=== PATIENT | female | born 1965 | race African-American/Black ===

== ENCOUNTER 2019-09-11 15:42 | Inpatient (IN) | payer BC ==
[2019-09-11] MEDS ORDERED: Sodium Chloride 0.9% 1,000 ML IV ONE ×2 (15:57→17:53)
[2019-09-11] MEDS ORDERED: Ondansetron 4 MG/2 ML SDV IVPUSH ONE (15:57)
--- NOTE | 2019-09-11 16:03 | EDM.PDOC ---
ED HPI GENERAL MEDICAL PROBLEM - General Chief Complaint: General Stated Complaint: HEADACHES, DEHYDRATION Time Seen by Provider: 09/11/19 15:46 Source of Information: Reports: Patient History Limitations: Reports: No Limitations - History of Present Illness INITIAL COMMENTS - FREE TEXT/NARRATIVE: HISTORY AND PHYSICAL: History of present illness: Patient is a 54-year-old female who presents to the ED today for concern of feeling dehydrated, weak, and tiredness. Patient states she has lost 7 pounds in the last week and has been sleeping a lot more. Patient does complain of generalized body aches and feels like her cramping off and on. Patient states she has a history of type 2 diabetes on oral medication and denies any other health history. Patient denies fever, chills, chest pain, shortness of breath, or cough. Denies headache, neck stiff ness, change in vision, syncope, or near syncope. Denies nausea, vomiting, abdominal pain, diarrhea, constipation, or dysuria. Has not noted any blood in urine or stool. Review of systems: As per history of present illness and below otherwise all systems reviewed and negative. Past medical history: As per history of present illness and as reviewed below otherwise noncontributory. Surgical history: As per history of present illness and as reviewed below otherwise noncontributory. Social history: See social history for further information Family history: As per history of present illness and as reviewed below otherwise noncontributory. Physical exam: General: Patient is alert, oriented, and in no acute distress. Patient laying comfortably on exam table but tired appearing. HEENT: Atraumatic, normocephalic, pupils equal and reactive bilaterally, negative for conjunctival pallor or scleral icterus, mucous membranes severely dry and tacky, TMs normal bilaterally, throat clear, neck supple, nontender, trachea midline. No drooling or trismus noted. No meningeal signs. No hot potato voice noted. Lungs: Clear to auscultation, breath sounds equal bilaterally, chest nontender. Heart: Tachycardic.S1S2, regular rate and rhythm without overt murmur Abdomen: Thin. Soft, nondistended, nontender. Negative for masses or hepatosplenomegaly. Negative for costovertebral tenderness. Pelvis: Stable nontender. Genitourinary: Deferred. Rectal: Deferred. Skin: Intact, warm, dry. No lesions or rashes noted. Extremities: Atraumatic, negative for cords or calf pain. Neurovascular unremarkable. Neuro: Awake, alert, oriented. Cranial nerves II through XII unremarkable. Cerebellum unremarkable. Motor and sensory unremarkable throughout. Exam nonfocal. Notes: Dr. Jolly verbally involved in patient care. Dr. Grayson consulted on patient and requests not starting insulin drip at this time and giving insulin 15U SQ of regular insulin. She also requests giving 2 A of bicarbonate at this time will admit to inpatient ICU. Voices understanding and is agreeable to plan of care. Denies any further questions or concerns at this time. Diagnostics: CBC, CMP, UA, EKG, chest x-ray, influenza, troponin, ABG, blood ketone, CPK Therapeutics: Saline, zofran, Insulin, 2 amp bicarb Impression: Metabolic Acidosis Plan: 1. Admit to inpatient ICU to Dr. Grayson. Definitive disposition and diagnosis as appropriate pending reevaluation and review of above. bodyaches Pain Score (Numeric/FACES): 8 - Related Data Allergies Allergy/AdvReac Type Severity Reaction Status Date / Time No Known Allergies Allergy Verified 09/11/19 15:50 Home Meds: Home Meds Empagliflozin/Linagliptin [Glyxambi 25 mg-5 mg Tablet] 1 each PO DAILY 12/18/16 [History] levETIRAcetam [Keppra] 500 mg PO DAILY 12/18/16 [History] sitaGLIPtin Phos/Metformin HCl [Janumet 50-1,000 MG] 1 each PO DAILY 12/18/16 [ History] Past Medical History - Past Health History Medical/Surgical History: Denies Medical/Surgical History Cardiovascular History: Reports: None Other RN ACUTE DIALYSIS History: perimenopausal Neurological History: Reports: Seizure Endocrine/Metabolic History: Reports: Diabetes, Type II Oncologic (Cancer) History: Reports: None - Past Surgical History Other HEENT Surgeries/Procedures: ear surgery 20 years ago. nasal surgery 5 years ago Social & Family History - Family History Family Medical History: Noncontributory - Tobacco Use Smoking Status *Q: Never Smoker - Caffeine Use Caffeine Use: Reports: Coffee Caffeine Use Comment: 3 cups a day - Recreational Drug Use Recreational Drug Use: No ED ROS GENERAL - Review of Systems Review Of Systems: Comprehensive ROS is negative, except as noted in HPI. ED EXAM, GENERAL - Physical Exam Exam: See Below (See dictation) Course - Vital Signs Last Recorded V/S: Last Vital Signs Temp 97.4 F 09/11/19 15:48 Pulse 108 H 09/11/19 17:50 Resp 20 09/11/19 17:50 BP 120/60 09/11/19 17:50 Pulse Ox 100 09/11/19 17:50 - Orders/Labs/Meds Orders: Active Orders 24 hr Category Date Time Status Admission Status [Patient Status] [ADT] Stat ADT 09/11/19 18:09 Ordered Blood Glucose Check, Bedside [RC] ONETIME Care 09/11/19 15:58 Active EKG Documentation Completion [RC] STAT Care 09/11/19 15:57 Active UA RFX MADELINE AND CULT IF INDIC [URIN] Stat Lab 09/11/19 15:57 Ordered Insulin Regular, Human [NovoLIN R] Med 09/11/19 18:15 Ordered 15 unit SUBCUT ASDIRECTED Sodium Chloride 0.9% [Normal Saline] 1,000 ml Med 09/11/19 17:53 Active IV .Bolus Medication Orders Sodium Chloride (Normal Saline) 1,000 mls @ 999 mls/hr IV .Bolus ONE Stop: 09/11/19 18:53 Last Admin: 09/11/19 17:56 Dose: 999 mls/hr Insulin Human Regular (Novolin R) 15 unit SUBCUT ASDIRECTED [facility]; Protocol Labs: Laboratory Tests 09/11/19 09/11/19 09/11/19 Range/Units 16:21 16:35 16:38 WBC 9.46 (4.0-11.0) K/uL RBC 5.21 (4.30-5.90) M/uL Hgb 15.4 (12.0-16.0) g/dL Hct 46.9 H (36.0-46.0) % MCV 90.0 (80.0-98.0) fL MCH 29.6 (27.0-32.0) pg MCHC 32.8 (31.0-37.0) g/dL RDW Std Deviation 43.8 (28.0-62.0) fl RDW Coeff of Mary 13 (11.0-15.0) % Plt Count 217 (150-400) K/uL MPV 9.10 (7.40-12.00) fL Neut % (Auto) 85.0 H (48.0-80.0) % Lymph % (Auto) 9.5 L (16.0-40.0) % Dewey % (Auto) 5.4 (0.0-15.0) % Eos % (Auto) 0.0 (0.0-7.0) % Baso % (Auto) 0.1 (0.0-1.5) % Neut # (Auto) 8.0 H (1.4-5.7) K/uL Lymph # (Auto) 0.9 (0.6-2.4) K/uL Dewey # (Auto) 0.5 (0.0-0.8) K/uL Eos # (Auto) 0.0 (0.0-0.7) K/uL Baso # (Auto) 0.0 (0.0-0.1) K/uL Nucleated RBC % 0.0 /100WBC Nucleated RBCs # 0 K/uL INR ABG pH 7.054 L* (7.35-7.45) ABG pCO2 16 L (35-45) mmHG ABG pO2 103 H (75-100) mmHG ABG HCO3 5 L (22-26) mEq/L ABG Total CO2 4.3 ABG Base Excess -24.0 L (-2.0-2.0) Sodium 133 L (136-145) mmol/L Potassium 4.8 (3.5-5.1) mmol/L Chloride 100 (98-107) mmol/L Carbon Dioxide 7.3 L (21.0-32.0) mmol/L BUN 21 H (7.0-18.0) mg/dL Creatinine 1.1 H (0.6-1.0) mg/dL Est Cr Clr Drug Dosing 37.26 mL/min Estimated GFR (MDRD) > 60.0 ml/min Glucose 280 H (74-106) mg/dL Calcium 8.6 (8.5-10.1) mg/dL Total Bilirubin 0.6 (0.2-1.0) mg/dL AST 21 (15-37) IU/L ALT 25 (14-63) IU/L Alkaline Phosphatase 74 (46-116) U/L Creatine Kinase (26-308) U/L Troponin I < 0.050 (0.000-0.056) ng/mL Total Protein 7.6 (6.4-8.2) g/dL Albumin 3.9 (3.4-5.0) g/dL Globulin 3.7 (2.6-4.0) g/dL Albumin/Globulin Ratio 1.1 (0.9-1.6) Lipase 314 (73-393) U/L Ketones (NEG) 09/11/19 09/11/19 09/11/19 Range/Units 16:38 16:38 16:38 WBC (4.0-11.0) K/uL RBC (4.30-5.90) M/uL Hgb (12.0-16.0) g/dL Hct (36.0-46.0) % MCV (80.0-98.0) fL MCH (27.0-32.0) pg MCHC (31.0-37.0) g/dL RDW Std Deviation (28.0-62.0) fl RDW Coeff of Mary (11.0-15.0) % Plt Count (150-400) K/uL MPV (7.40-12.00) fL Neut % (Auto) (48.0-80.0) % Lymph % (Auto) (16.0-40.0) % Dewey % (Auto) (0.0-15.0) % Eos % (Auto) (0.0-7.0) % Baso % (Auto) (0.0-1.5) % Neut # (Auto) (1.4-5.7) K/uL Lymph # (Auto) (0.6-2.4) K/uL Dewey # (Auto) (0.0-0.8) K/uL Eos # (Auto) (0.0-0.7) K/uL Baso # (Auto) (0.0-0.1) K/uL Nucleated RBC % /100WBC Nucleated RBCs # K/uL INR 0.90 ABG pH (7.35-7.45) ABG pCO2 (35-45) mmHG ABG pO2 (75-100) mmHG ABG HCO3 (22-26) mEq/L ABG Total CO2 ABG Base Excess (-2.0-2.0) Sodium (136-145) mmol/L Potassium (3.5-5.1) mmol/L Chloride (98-107) mmol/L Carbon Dioxide (21.0-32.0) mmol/L BUN (7.0-18.0) mg/dL Creatinine (0.6-1.0) mg/dL Est Cr Clr Drug Dosing mL/min Estimated GFR (MDRD) ml/min Glucose (74-106) mg/dL Calcium (8.5-10.1) mg/dL Total Bilirubin (0.2-1.0) mg/dL AST (15-37) IU/L ALT (14-63) IU/L Alkaline Phosphatase (46-116) U/L Creatine Kinase 47 (26-308) U/L Troponin I (0.000-0.056) ng/mL Total Protein (6.4-8.2) g/dL Albumin (3.4-5.0) g/dL Globulin (2.6-4.0) g/dL Albumin/Globulin Ratio (0.9-1.6) Lipase (73-393) U/L Ketones MODERATE H (NEG) Meds: Medications Generic Name Dose Route Start Last Admin Trade Name Freq PRN Reason Stop Dose Admin Sodium Chloride 1,000 mls @ 999 mls/hr 09/11/19 17:53 09/11/19 17:56 Normal Saline IV 09/11/19 18:53 999 mls/hr .Bolus ONE Administration Insulin Human Regular 15 unit 09/11/19 18:15 Novolin R SUBCUT ASDIRECTED PAR[facility] Protocol Discontinued Medications Generic Name Dose Route Start Last Admin Trade Name Freq PRN Reason Stop Dose Admin Sodium Chloride 1,000 mls @ 999 mls/hr 09/11/19 15:57 09/11/19 16:18 Normal Saline IV 09/11/19 16:57 999 mls/hr BOLUS ONE Administration Ondansetron HCl 4 mg 09/11/19 15:57 09/11/19 17:32 Zofran IVPUSH 09/11/19 15:58 Not Given ONETIME ONE Sodium Bicarbonate 50 meq 09/11/19 18:04 Sodium Bicarbonate 8.4% IVPUSH 09/11/19 18:05 ONETIME ONE Sodium Bicarbonate 50 meq 09/11/19 18:05 Sodium Bicarbonate 8.4% IVPUSH 09/11/19 18:06 ONETIME ONE Departure - Departure Time of Disposition: 18:14 Disposition: Admitted As Inpatient 66 Clinical Impression: Metabolic acidosis - Discharge Information Referrals: Garrett Mckoy MD [Primary Care Provider] - Forms: ED Department Discharge - My Orders Last 24 Hours: My Active Orders 09/11/19 15:57 EKG Documentation Completion [RC] STAT UA RFX MADELINE AND CULT IF INDIC [URIN] Stat 09/11/19 15:58 Blood Glucose Check, Bedside [RC] ONETIME 09/11/19 17:53 Sodium Chloride 0.9% [Normal Saline] 1,000 ml IV .Bolus 09/11/19 18:09 Admission Status [Patient Status] [ADT] Stat 09/11/19 18:15 Insulin Regular, Human [NovoLIN R] 15 unit SUBCUT ASDIRECTED - Assessment/Plan Last 24 Hours: My Active Orders 09/11/19 15:57 EKG Documentation Completion [RC] STAT UA RFX MADELINE AND CULT IF INDIC [URIN] Stat 09/11/19 15:58 Blood Glucose Check, Bedside [RC] ONETIME 09/11/19 17:53 Sodium Chloride 0.9% [Normal Saline] 1,000 ml IV .Bolus 09/11/19 18:09 Admission Status [Patient Status] [ADT] Stat 09/11/19 18:15 Insulin Regular, Human [NovoLIN R] 15 unit SUBCUT ASDIRECTED
[2019-09-11 17:23] LABS: BLOOD UREA NITROGEN,BUN 21 mg/dL (7.0-18.0); CARBON DIOXIDE,CO2 7.3 mmol/L (21.0-32.0); CHLORIDE,CL 100 mmol/L (98-107); GLUCOSE RANDOM 280 mg/dL (74-106); LIPASE 314 U/L (73-393); POTASSIUM,K 4.8 mmol/L (3.5-5.1); SODIUM,NA 133 mmol/L (136-145)
--- NOTE | 2019-09-11 17:37 | CR ---
HISTORY: Weakness COMPARISON: None available FINDINGS: A portable erect AP view of the chest was obtained at STUDY TIME hours. The lungs are clear. No focal or diffuse infiltrates are present. The heart is top-normal in size. The mediastinum is normal in appearance. The osseous structures are normal in appearance for the patient`s age. IMPRESSION: Normal portable chest single view. Dictated by Cody Prado MD @ Sep 11 2019 5:35PM Signed by Dr. Cody Prado @ Sep 11 2019 5:35PM
[2019-09-11] MEDS ORDERED: Sodium Bicarbonate 8.4% 50 MEQ/50 ML Syringe IVPUSH ONE ×2 (18:04→18:05)
[2019-09-11] MEDS ORDERED: Insulin Regular, Human 100 Units/ML 10 ML Vial SUBCUT SCH (18:15)
--- NOTE | 2019-09-11 19:25 | PCM.HP.2 ---
<Tonio Lopez - Last Filed: 09/11/19 19:54> H&P History of Present Illness - General Date of Service: 09/11/19 Admit Problem/Dx: Admission Diagnosis/Problem Admission Diagnosis/Problem Metabolic acidosis - History of Present Illness Initial Comments - Free Text/Narative: 54 y/o female with history of type 2 diabetes who presented to the ER complaining nausea, abdominal pain, muscle cramps. Poor appetite for the past 1 week. State she has lost about 7-10 lbs in the past couple of weeks. states she has been taking her medications as indicated. Denies any recent illness. No cough, chest pain, dyspnea. Some abdominal cramping. No dysuria, diarrhea, blood in stool. In the ER, she was found to be hyperglycemic in mid 200's. ABG showed acidosis pH 7.0 and low bicarb. In addition, ketones in blood. bodyaches Pain Score (Numeric/FACES): 8 - Related Data Allergies/Adverse Reactions: Allergies Allergy/AdvReac Type Severity Reaction Status Date / Time No Known Allergies Allergy Verified 09/12/19 01:20 Home Medications: Home Meds levETIRAcetam [Keppra] 500 mg PO DAILY 12/18/16 [History] sitaGLIPtin Phos/Metformin HCl [Janumet 50-1,000 MG] 1 each PO DAILY 12/18/16 [ History] Past Medical History - Past Health History Medical/Surgical History: Denies Medical/Surgical History Cardiovascular History: Reports: None Other OB/BYN History: perimenopausal Neurological History: Reports: Seizure Endocrine/Metabolic History: Reports: Diabetes, Type II Oncologic (Cancer) History: Reports: None - Past Surgical History Other HEENT Surgeries/Procedures: ear surgery 20 years ago. nasal surgery 5 years ago Social & Family History - Family History Family Medical History: Noncontributory - Tobacco Use Smoking Status *Q: Never Smoker - Caffeine Use Caffeine Use: Reports: Coffee Caffeine Use Comment: 3 cups a day - Recreational Drug Use Recreational Drug Use: No H&P Review of Systems - Review of Systems: Review Of Systems: Comprehensive ROS is negative, except as noted in HPI. Exam - Exam Exam: See Below - Vital Signs Vital Signs: Last Vital Signs Temp 36.3 C 09/11/19 15:48 Pulse 105 H 09/11/19 18:50 Resp 20 09/11/19 18:50 BP 112/69 09/11/19 18:50 Pulse Ox 100 09/11/19 18:50 Weight: 40.37 kg - Exam General: Alert, Oriented, Cooperative HEENT: Other (dry oral mucosa) Lungs: Clear to Auscultation, Normal Respiratory Effort. No: Crackles, Wheezing Cardiovascular: Regular Rhythm, Tachycardia GI/Abdominal Exam: Soft, Tender Extremities: No Pedal Edema Skin: Dry - Patient Data Lab Results Last 24 hrs: Laboratory Results - last 24 hr 09/11/19 09/11/19 09/11/19 Range/Units 16:21 16:35 16:35 WBC (4.0-11.0) K/uL RBC (4.30-5.90) M/uL Hgb (12.0-16.0) g/dL Hct (36.0-46.0) % MCV (80.0-98.0) fL MCH (27.0-32.0) pg MCHC (31.0-37.0) g/dL RDW Std Deviation (28.0-62.0) fl RDW Coeff of Mary (11.0-15.0) % Plt Count (150-400) K/uL MPV (7.40-12.00) fL Neut % (Auto) (48.0-80.0) % Lymph % (Auto) (16.0-40.0) % [place] % (Auto) (0.0-15.0) % Eos % (Auto) (0.0-7.0) % Baso % (Auto) (0.0-1.5) % Neut # (Auto) (1.4-5.7) K/uL Lymph # (Auto) (0.6-2.4) K/uL [place] # (Auto) (0.0-0.8) K/uL Eos # (Auto) (0.0-0.7) K/uL Baso # (Auto) (0.0-0.1) K/uL Nucleated RBC % /100WBC Nucleated RBCs # K/uL INR ABG pH 7.054 L* (7.35-7.45) ABG pCO2 16 L (35-45) mmHG ABG pO2 103 H (75-100) mmHG ABG HCO3 5 L (22-26) mEq/L ABG Total CO2 4.3 ABG Base Excess -24.0 L (-2.0-2.0) Sodium 133 L (136-145) mmol/L Potassium 4.8 (3.5-5.1) mmol/L Chloride 100 (98-107) mmol/L Carbon Dioxide 7.3 L (21.0-32.0) mmol/L BUN 21 H (7.0-18.0) mg/dL Creatinine 1.1 H (0.6-1.0) mg/dL Est Cr Clr Drug Dosing 37.26 mL/min Estimated GFR (MDRD) > 60.0 ml/min Glucose 280 H (74-106) mg/dL POC Glucose (60-110) mg/dL Calcium 8.6 (8.5-10.1) mg/dL Phosphorus 3.7 (2.6-4.7) mg/dL Magnesium 2.4 (1.8-2.4) mg/dL Total Bilirubin 0.6 (0.2-1.0) mg/dL AST 21 (15-37) IU/L ALT 25 (14-63) IU/L Alkaline Phosphatase 74 (46-116) U/L Creatine Kinase (26-308) U/L Troponin I < 0.050 (0.000-0.056) ng/mL Total Protein 7.6 (6.4-8.2) g/dL Albumin 3.9 (3.4-5.0) g/dL Globulin 3.7 (2.6-4.0) g/dL Albumin/Globulin Ratio 1.1 (0.9-1.6) Lipase 314 (73-393) U/L Ketones (NEG) 09/11/19 09/11/19 09/11/19 Range/Units 16:38 16:38 16:38 WBC 9.46 (4.0-11.0) K/uL RBC 5.21 (4.30-5.90) M/uL Hgb 15.4 (12.0-16.0) g/dL Hct 46.9 H (36.0-46.0) % MCV 90.0 (80.0-98.0) fL MCH 29.6 (27.0-32.0) pg MCHC 32.8 (31.0-37.0) g/dL RDW Std Deviation 43.8 (28.0-62.0) fl RDW Coeff of Mary 13 (11.0-15.0) % Plt Count 217 (150-400) K/uL MPV 9.10 (7.40-12.00) fL Neut % (Auto) 85.0 H (48.0-80.0) % Lymph % (Auto) 9.5 L (16.0-40.0) % [place] % (Auto) 5.4 (0.0-15.0) % Eos % (Auto) 0.0 (0.0-7.0) % Baso % (Auto) 0.1 (0.0-1.5) % Neut # (Auto) 8.0 H (1.4-5.7) K/uL Lymph # (Auto) 0.9 (0.6-2.4) K/uL [place] # (Auto) 0.5 (0.0-0.8) K/uL Eos # (Auto) 0.0 (0.0-0.7) K/uL Baso # (Auto) 0.0 (0.0-0.1) K/uL Nucleated RBC % 0.0 /100WBC Nucleated RBCs # 0 K/uL INR 0.90 ABG pH (7.35-7.45) ABG pCO2 (35-45) mmHG ABG pO2 (75-100) mmHG ABG HCO3 (22-26) mEq/L ABG Total CO2 ABG Base Excess (-2.0-2.0) Sodium (136-145) mmol/L Potassium (3.5-5.1) mmol/L Chloride (98-107) mmol/L Carbon Dioxide (21.0-32.0) mmol/L BUN (7.0-18.0) mg/dL Creatinine (0.6-1.0) mg/dL Est Cr Clr Drug Dosing mL/min Estimated GFR (MDRD) ml/min Glucose (74-106) mg/dL POC Glucose (60-110) mg/dL Calcium (8.5-10.1) mg/dL Phosphorus (2.6-4.7) mg/dL Magnesium (1.8-2.4) mg/dL Total Bilirubin (0.2-1.0) mg/dL AST (15-37) IU/L ALT (14-63) IU/L Alkaline Phosphatase (46-116) U/L Creatine Kinase (26-308) U/L Troponin I (0.000-0.056) ng/mL Total Protein (6.4-8.2) g/dL Albumin (3.4-5.0) g/dL Globulin (2.6-4.0) g/dL Albumin/Globulin Ratio (0.9-1.6) Lipase (73-393) U/L Ketones MODERATE H (NEG) 09/11/19 09/11/19 09/11/19 Range/Units 16:38 18:13 19:15 WBC (4.0-11.0) K/uL RBC (4.30-5.90) M/uL Hgb (12.0-16.0) g/dL Hct (36.0-46.0) % MCV (80.0-98.0) fL MCH (27.0-32.0) pg MCHC (31.0-37.0) g/dL RDW Std Deviation (28.0-62.0) fl RDW Coeff of Mary (11.0-15.0) % Plt Count (150-400) K/uL MPV (7.40-12.00) fL Neut % (Auto) (48.0-80.0) % Lymph % (Auto) (16.0-40.0) % [place] % (Auto) (0.0-15.0) % Eos % (Auto) (0.0-7.0) % Baso % (Auto) (0.0-1.5) % Neut # (Auto) (1.4-5.7) K/uL Lymph # (Auto) (0.6-2.4) K/uL [place] # (Auto) (0.0-0.8) K/uL Eos # (Auto) (0.0-0.7) K/uL Baso # (Auto) (0.0-0.1) K/uL Nucleated RBC % /100WBC Nucleated RBCs # K/uL INR ABG pH (7.35-7.45) ABG pCO2 (35-45) mmHG ABG pO2 (75-100) mmHG ABG HCO3 (22-26) mEq/L ABG Total CO2 ABG Base Excess (-2.0-2.0) Sodium (136-145) mmol/L Potassium (3.5-5.1) mmol/L Chloride (98-107) mmol/L Carbon Dioxide (21.0-32.0) mmol/L BUN (7.0-18.0) mg/dL Creatinine (0.6-1.0) mg/dL Est Cr Clr Drug Dosing mL/min Estimated GFR (MDRD) ml/min Glucose (74-106) mg/dL POC Glucose 206 H 171 H (60-110) mg/dL Calcium (8.5-10.1) mg/dL Phosphorus (2.6-4.7) mg/dL Magnesium (1.8-2.4) mg/dL Total Bilirubin (0.2-1.0) mg/dL AST (15-37) IU/L ALT (14-63) IU/L Alkaline Phosphatase (46-116) U/L Creatine Kinase 47 (26-308) U/L Troponin I (0.000-0.056) ng/mL Total Protein (6.4-8.2) g/dL Albumin (3.4-5.0) g/dL Globulin (2.6-4.0) g/dL Albumin/Globulin Ratio (0.9-1.6) Lipase (73-393) U/L Ketones (NEG) Result Diagrams: 09/11/19 16:38 09/11/19 16:35 Renato Results Last 24 hrs: Microbiology 09/11/19 17:25 Influenza Type A Antigen Screen - Final Nasopharyngeal Swab NEGATIVE INFLUENZA A VIRUS AG REFERENCE RANGE: NEGATIVE Influenza Type B Antigen Screen - Final NEGATIVE INFLUENZA B VIRUS AG REFERENCE RANGE: NEGATIVE Problem List Initiated/Reviewed/Updated: Yes Orders Last 24hrs: Active Orders 24 hr Category Date Time Status Admission Status [Patient Status] [ADT] Stat ADT 09/11/19 18:09 Active Blood Glucose Check, Bedside [RC] ONETIME Care 09/11/19 15:58 Active Cardiac Monitoring [RC] CONTINUOUS Care 09/11/19 18:45 Active EKG Documentation Completion [RC] STAT Care 09/11/19 15:57 Active Intake and Output [RC] QSHIFT Care 09/11/19 18:45 Active Oxygen Therapy [RC] PRN Care 09/11/19 18:45 Active Up With Assistance [RC] ASDIRECTED Care 09/11/19 18:44 Active VTE/DVT Education [RC] PER UNIT ROUTINE Care 09/11/19 18:45 Active Vital Signs [RC] Q4H Care 09/11/19 18:45 Active Nothing per Oral Now Diet [DIET] Diet 09/11/19 Breakfast Active ALBUMIN [CHEM] Routine Lab 09/12/19 04:00 Ordered BASIC METABOLIC PANEL,BMP [CHEM] Q4H Lab 09/11/19 20:00 Ordered BASIC METABOLIC PANEL,BMP [CHEM] Q4H Lab 09/12/19 00:00 Ordered BASIC METABOLIC PANEL,BMP [CHEM] Q4H Lab 09/12/19 04:00 Ordered BASIC METABOLIC PANEL,BMP [CHEM] Q4H Lab 09/12/19 08:00 Ordered BASIC METABOLIC PANEL,BMP [CHEM] Q4H Lab 09/12/19 12:00 Ordered LACTIC ACID,WHOLE BLOOD [BG] Routine Lab 09/11/19 19:18 Ordered MAGNESIUM [CHEM] Q4H Lab 09/11/19 20:00 Ordered MAGNESIUM [CHEM] Q4 Lab 09/12/19 00:00 Ordered MAGNESIUM [CHEM] Q4 Lab 09/12/19 04:00 Ordered MAGNESIUM [CHEM] Q4 Lab 09/12/19 08:00 Ordered MAGNESIUM [CHEM] Q4 Lab 09/12/19 12:00 Ordered PHOSPHORUS [CHEM] Q4 Lab 09/11/19 20:00 Ordered PHOSPHORUS [CHEM] Q4 Lab 09/12/19 00:00 Ordered PHOSPHORUS [CHEM] Q4 Lab 09/12/19 04:00 Ordered PHOSPHORUS [CHEM] Q4 Lab 09/12/19 08:00 Ordered PHOSPHORUS [CHEM] Q4 Lab 09/12/19 12:00 Ordered TRIGLYCERIDES [CHEM] Routine Lab 09/11/19 19:16 Ordered UA RFX RENATO AND CULT IF INDIC [URIN] Stat Lab 09/11/19 15:57 Ordered Enoxaparin [Lovenox] Med 09/11/19 18:45 Active 40 mg SUBCUT Q24H Insulin Regular, Human [NovoLIN R] 100 unit Med 09/11/19 19:00 Active Sodium Chloride 0.9% [Normal Saline] 99 ml IV TITRATE Pantoprazole [ProTONIX IV] 40 mg Med 09/11/19 19:30 Active Sodium Chloride 0.9% [Normal Saline] 10 ml IV Q24H Sodium Chloride 0.9% [Normal Saline] 1,000 ml Med 09/11/19 18:45 Active IV BOLUS Resuscitation Status Routine Resus Stat 09/11/19 18:44 Ordered Medication Orders Enoxaparin Sodium (Lovenox) 40 mg SUBCUT Q24H PARAM Sodium Chloride (Normal Saline) 1,000 mls @ 999 mls/hr IV BOLUS PARAM Stop: 09/12/19 19:46 Insulin Human Regular 100 unit (/ Sodium Chloride) 100 mls @ 4.03 mls/hr IV TITRATE PARAM; Protocol Pantoprazole Sodium 40 mg/ (Sodium Chloride) 10 mls @ 300 mls/hr IV Q24H PARAM Assessment/Plan Comment:: A: 1. Diabetic ketoacidosis 2. Acute kidney injury 3. Hyponatremia P: 1. Will start insulin drip and titrate as necessary. Will bolus with 2 L NS and start D5NS at 200 ml/hr while insulin drip is running since patient has BG low 200's already but still with ketoacidosis. Continue drip until anion gap closes to prevent rebound DKA. Check BMP, electrolytes q4H for now and replace as needed. Will switch to SQ insulin once patient can tolerate PO and is not nauseous. Dispo: 1-2 days. <Gale Grayson - Last Filed: 09/13/19 09:34> H&P History of Present Illness - General Admit Problem/Dx: Admission Diagnosis/Problem Admission Diagnosis/Problem Metabolic acidosis Exam - Vital Signs Vital Signs: Last Vital Signs Temp 36.7 C 09/13/19 08:00 Pulse 87 09/12/19 08:00 Resp 18 09/13/19 09:00 BP 126/69 09/13/19 09:00 Pulse Ox 98 09/13/19 09:00 - Patient Data Lab Results Last 24 hrs: Laboratory Results - last 24 hr 09/12/19 09/12/19 09/12/19 Range/Units 07:32 08:39 09:38 ABG pH (7.35-7.45) ABG pCO2 (35-45) mmHG ABG pO2 (75-100) mmHG ABG HCO3 (22-26) mEq/L ABG Total CO2 ABG Base Excess (-2.0-2.0) Sodium (136-145) mmol/L Potassium (3.5-5.1) mmol/L Chloride (98-107) mmol/L Carbon Dioxide (21.0-32.0) mmol/L BUN (7.0-18.0) mg/dL Creatinine (0.6-1.0) mg/dL Est Cr Clr Drug Dosing mL/min Estimated GFR (MDRD) ml/min Glucose (74-106) mg/dL POC Glucose 149 H 147 H 164 H (60-110) mg/dL Calcium (8.5-10.1) mg/dL Phosphorus (2.6-4.7) mg/dL Magnesium (1.8-2.4) mg/dL Albumin (3.4-5.0) g/dL TSH 3rd Generation (0.36-3.74) uIU/mL 09/12/19 09/12/19 09/12/19 Range/Units 10:25 11:27 11:50 ABG pH 7.364 (7.35-7.45) ABG pCO2 32 L (35-45) mmHG ABG pO2 76 (75-100) mmHG ABG HCO3 18 L (22-26) mEq/L ABG Total CO2 16.9 ABG Base Excess -6.3 L (-2.0-2.0) Sodium (136-145) mmol/L Potassium (3.5-5.1) mmol/L Chloride (98-107) mmol/L Carbon Dioxide (21.0-32.0) mmol/L BUN (7.0-18.0) mg/dL Creatinine (0.6-1.0) mg/dL Est Cr Clr Drug Dosing mL/min Estimated GFR (MDRD) ml/min Glucose (74-106) mg/dL POC Glucose 134 H 125 H (60-110) mg/dL Calcium (8.5-10.1) mg/dL Phosphorus (2.6-4.7) mg/dL Magnesium (1.8-2.4) mg/dL Albumin (3.4-5.0) g/dL TSH 3rd Generation (0.36-3.74) uIU/mL 09/12/19 09/12/19 09/12/19 Range/Units 12:42 13:15 13:27 ABG pH (7.35-7.45) ABG pCO2 (35-45) mmHG ABG pO2 (75-100) mmHG ABG HCO3 (22-26) mEq/L ABG Total CO2 ABG Base Excess (-2.0-2.0) Sodium 141 (136-145) mmol/L Potassium 3.2 L (3.5-5.1) mmol/L Chloride 112 H (98-107) mmol/L Carbon Dioxide 18.9 L (21.0-32.0) mmol/L BUN 5 L (7.0-18.0) mg/dL Creatinine 0.6 (0.6-1.0) mg/dL Est Cr Clr Drug Dosing 68.31 mL/min Estimated GFR (MDRD) > 60.0 ml/min Glucose 137 H (74-106) mg/dL POC Glucose 130 H 126 H (60-110) mg/dL Calcium 6.3 L (8.5-10.1) mg/dL Phosphorus 1.2 L (2.6-4.7) mg/dL Magnesium 1.8 (1.8-2.4) mg/dL Albumin 2.6 L (3.4-5.0) g/dL TSH 3rd Generation (0.36-3.74) uIU/mL 09/12/19 09/12/19 09/12/19 Range/Units 14:24 15:35 16:14 ABG pH (7.35-7.45) ABG pCO2 (35-45) mmHG ABG pO2 (75-100) mmHG ABG HCO3 (22-26) mEq/L ABG Total CO2 ABG Base Excess (-2.0-2.0) Sodium (136-145) mmol/L Potassium (3.5-5.1) mmol/L Chloride (98-107) mmol/L Carbon Dioxide (21.0-32.0) mmol/L BUN (7.0-18.0) mg/dL Creatinine (0.6-1.0) mg/dL Est Cr Clr Drug Dosing mL/min Estimated GFR (MDRD) ml/min Glucose (74-106) mg/dL POC Glucose 123 H 143 H 140 H (60-110) mg/dL Calcium (8.5-10.1) mg/dL Phosphorus (2.6-4.7) mg/dL Magnesium (1.8-2.4) mg/dL Albumin (3.4-5.0) g/dL TSH 3rd Generation (0.36-3.74) uIU/mL 09/12/19 09/12/19 09/12/19 Range/Units 16:15 17:06 17:58 ABG pH (7.35-7.45) ABG pCO2 (35-45) mmHG ABG pO2 (75-100) mmHG ABG HCO3 (22-26) mEq/L ABG Total CO2 ABG Base Excess (-2.0-2.0) Sodium 141 (136-145) mmol/L Potassium 3.6 (3.5-5.1) mmol/L Chloride 110 H (98-107) mmol/L Carbon Dioxide 18.6 L (21.0-32.0) mmol/L BUN 5 L (7.0-18.0) mg/dL Creatinine 0.6 (0.6-1.0) mg/dL Est Cr Clr Drug Dosing 68.31 mL/min Estimated GFR (MDRD) > 60.0 ml/min Glucose 133 H (74-106) mg/dL POC Glucose 227 H 244 H (60-110) mg/dL Calcium 6.6 L (8.5-10.1) mg/dL Phosphorus 2.1 L (2.6-4.7) mg/dL Magnesium 2.1 (1.8-2.4) mg/dL Albumin 2.9 L (3.4-5.0) g/dL TSH 3rd Generation (0.36-3.74) uIU/mL 09/12/19 09/12/19 09/13/19 Range/Units 19:55 19:56 01:56 ABG pH (7.35-7.45) ABG pCO2 (35-45) mmHG ABG pO2 (75-100) mmHG ABG HCO3 (22-26) mEq/L ABG Total CO2 ABG Base Excess (-2.0-2.0) Sodium 138 (136-145) mmol/L Potassium 2.9 L (3.5-5.1) mmol/L Chloride 107 (98-107) mmol/L Carbon Dioxide 23.2 (21.0-32.0) mmol/L BUN 5 L (7.0-18.0) mg/dL Creatinine 0.6 (0.6-1.0) mg/dL Est Cr Clr Drug Dosing 68.31 mL/min Estimated GFR (MDRD) > 60.0 ml/min Glucose 155 H (74-106) mg/dL POC Glucose 145 H 57 L (60-110) mg/dL Calcium 6.9 L (8.5-10.1) mg/dL Phosphorus 1.5 L (2.6-4.7) mg/dL Magnesium 2.1 (1.8-2.4) mg/dL Albumin 2.5 L (3.4-5.0) g/dL TSH 3rd Generation (0.36-3.74) uIU/mL 09/13/19 09/13/19 09/13/19 Range/Units 02:34 03:18 05:00 ABG pH (7.35-7.45) ABG pCO2 (35-45) mmHG ABG pO2 (75-100) mmHG ABG HCO3 (22-26) mEq/L ABG Total CO2 ABG Base Excess (-2.0-2.0) Sodium 140 (136-145) mmol/L Potassium 3.8 (3.5-5.1) mmol/L Chloride 107 (98-107) mmol/L Carbon Dioxide 29.2 (21.0-32.0) mmol/L BUN 7 (7.0-18.0) mg/dL Creatinine 0.4 L (0.6-1.0) mg/dL Est Cr Clr Drug Dosing 130.97 mL/min Estimated GFR (MDRD) > 60.0 ml/min Glucose 175 H (74-106) mg/dL POC Glucose 92 143 H (60-110) mg/dL Calcium 7.5 L (8.5-10.1) mg/dL Phosphorus 2.0 L (2.6-4.7) mg/dL Magnesium 1.9 (1.8-2.4) mg/dL Albumin 2.5 L (3.4-5.0) g/dL TSH 3rd Generation (0.36-3.74) uIU/mL 09/13/19 09/13/19 Range/Units 05:00 08:03 ABG pH (7.35-7.45) ABG pCO2 (35-45) mmHG ABG pO2 (75-100) mmHG ABG HCO3 (22-26) mEq/L ABG Total CO2 ABG Base Excess (-2.0-2.0) Sodium (136-145) mmol/L Potassium (3.5-5.1) mmol/L Chloride (98-107) mmol/L Carbon Dioxide (21.0-32.0) mmol/L BUN (7.0-18.0) mg/dL Creatinine (0.6-1.0) mg/dL Est Cr Clr Drug Dosing mL/min Estimated GFR (MDRD) ml/min Glucose (74-106) mg/dL POC Glucose 141 H (60-110) mg/dL Calcium (8.5-10.1) mg/dL Phosphorus (2.6-4.7) mg/dL Magnesium (1.8-2.4) mg/dL Albumin (3.4-5.0) g/dL TSH 3rd Generation 5.64 H (0.36-3.74) uIU/mL Result Diagrams: 09/12/19 04:10 09/13/19 05:00 Renato Results Last 24 hrs: Microbiology 09/11/19 21:50 Urine Culture - Final Urine, Clean Catch Escherichia Coli Normal Urogenital Treasure Orders Last 24hrs: Active Orders 24 hr Category Date Time Status Consult to Combination Building Inspector [Consult to Diabetic Nurse Cons 09/12/19 09:16 Active Specialist] [CONS] Routine Citizen Of [place] Diabetic Association Diet [DIET] Diet 09/12/19 Lunch Active Calcium Gluconate 2 gm Med 09/12/19 15:30 Active Sodium Chloride 0.9% [Normal Saline] 100 ml IV ONETIME Insulin Aspart [NovoLOG] Med 09/12/19 20:00 Active See Protocol SUBCUT Q6H Insulin Detemir [Levemir] Med 09/12/19 21:00 Active 5 unit SUBCUT BEDTIME Ketorolac [Toradol] Med 09/12/19 13:15 Active 15 mg IVPUSH Q6H PRN Pantoprazole [ProTONIX IV] 40 mg Med 09/12/19 10:00 Active Sodium Chloride 0.9% [Normal Saline] 10 ml IV DAILY@0700 Phosphorus #1 [Neutra-Phos] Med 09/13/19 00:00 Active 250 mg PO QID Medication Orders Enoxaparin Sodium (Lovenox) 40 mg SUBCUT Q24H [facility] Last Admin: 09/12/19 18:12 Dose: 40 mg Admin: 09/11/19 20:20 Dose: 40 mg Dextrose/Sodium Chloride (Dextrose 5%-Normal Saline) 1,000 mls @ 200 mls/hr IV ASDIRECTED [facility] Last Admin: 09/12/19 11:38 Dose: 200 mls/hr Infusion: 09/12/19 11:20 Dose: 200 mls/hr Infusion: 09/12/19 06:47 Dose: 200 mls/hr Admin: 09/12/19 05:53 Dose: 100 mls/hr Infusion: 09/12/19 05:53 Dose: 100 mls/hr Infusion: 09/11/19 22:30 Dose: 100 mls/hr Admin: 09/11/19 21:42 Dose: 200 mls/hr Pantoprazole Sodium 40 mg/ (Sodium Chloride) 10 mls @ 300 mls/hr IV DAILY@0700 [facility] Last Admin: 09/13/19 06:46 Dose: 300 mls/hr Infusion: 09/12/19 10:12 Dose: 300 mls/hr Admin: 09/12/19 10:10 Dose: 300 mls/hr Calcium Gluconate 2 gm/ Sodium (Chloride) 120 mls @ 60 mls/hr IV ONETIME [facility] Last Admin: 09/12/19 15:44 Dose: 60 mls/hr Insulin Aspart (Novolog) 0 unit SUBCUT Q6H [facility]; Protocol Last Admin: 09/13/19 08:12 Dose: Not Given Admin: 09/13/19 02:01 Dose: Not Given Admin: 09/12/19 20:05 Dose: Not Given Insulin Detemir (Levemir) 5 unit SUBCUT BEDTIME [facility] Last Admin: 09/12/19 20:02 Dose: 5 unit Ketorolac Tromethamine (Toradol) 15 mg IVPUSH Q6H PRN PRN Reason: Pain Last Admin: 09/12/19 13:21 Dose: 15 mg Ondansetron HCl (Zofran) 4 mg IVPUSH Q4H PRN PRN Reason: Nausea/Vomiting Last Admin: 09/12/19 05:44 Dose: 4 mg Sodium Phosphate (Neutra-Phos) 250 mg PO QID PARAM Last Admin: 09/13/19 05:00 Dose: 250 mg Admin: 09/12/19 23:38 Dose: 250 mg Assessment/Plan Comment:: I performed a history and physical exam of the patient and discussed management with resident. I have reviewed the residents note and agree with documented findings and plan unless otherwise specified in my note.
[2019-09-11] MEDS ORDERED: Thiamine 100 MG in Sodium Chloride 0.9% 100 ML IV ONE (19:28)
[2019-09-11] MEDS ORDERED: Pantoprazole 40 MG in Sodium Chloride 0.9% 10 ML IV SCH (19:30)
[2019-09-11] MEDS: Enoxaparin 40 MG/0.4 ML Syringe SUBCUT SCH (20:20)
[2019-09-11] MEDS: Sodium Chloride 0.9% 1,000 ML IV SCH ×2 (20:24→22:24)
[2019-09-11 20:43] LABS: BLOOD UREA NITROGEN,BUN 15 mg/dL (7.0-18.0); CARBON DIOXIDE,CO2 12.3 mmol/L (21.0-32.0); CHLORIDE,CL 106 mmol/L (98-107); GLUCOSE RANDOM 142 mg/dL (74-106); SODIUM,NA 140 mmol/L (136-145)
--- NOTE | 2019-09-11 20:58 | PN ---
THC Physician - Brief Progress [id number]/14/2019 20:52[facility] Jamaal hernandez, [place] - SHAUN (NICO) - SHAUN Justino HOFFMANNharshad of Service 09/11/2019 20:52HPI/Events of Note EICU note:Reason for ICU admission - metabolic acidosis, ketosisPast history - DMBrief HPI - 54 year old woman with nausea, abdominal discomfort, loss of appetite and weight loss. Noted to have significant ketoacidosis on labs. Given IV fluids and insulin and being started on an insulin infusi on with dextrose infusion overnight in the iCU. No fever. Data reviewed - Notes in EMR, Lab results, radiology reportsBicarb improved to 12 alreadyCamera assessment completed - Stable vitals and comfort ableEICU suggestions- Is being kept NPO, on iv hydration and insulin infusion per protocol in ICUGluc ose checks every hourBMP every 4 hoursMay need to add potassium to the fluids as she remains on insul in iv overnight - will need to follow serial K, bicarb and anion gapReplete electrolytes as neededWil l need a work up for weight loss when stabilized - this could be starvation ketosis as well Monitor h emodynamics, fluid balance, glycemiaDiscussed with RN Prophylaxis - lovenoxPlease call EICU if needed . Has serial labs ordered in systemInterventions Xzqpt-Dfdj-Ruop disturbance - evaluation and managem entMinor-Communication with other healthcare providers and/or family
[2019-09-11] MEDS ORDERED: Ondansetron 4 MG/2 ML SDV IVPUSH PRN (21:00)
[2019-09-11] MEDS ORDERED: Potassium Phosphates 30 MMOLE in Sodium Chloride 0.9% 500 ML IV ONE (21:12)
--- NOTE | 2019-09-11 21:18 | PN ---
THC Physician - Brief Progress [id number]/14/2019 21:[address] JamaalLATIA - SHAUN (NICO) - Yehuda LOPEZ of Service 09/11/2019 21:17HPI/Events of Note K phos 30 mmol ordered based on most recent BMP - K is 4, phos s 1.4 (so will not add K to pippa bañuelos for now as she will be getting this as well)In addition, check ionized calciumInterventions Carlos or-Electrolyte abnormality - evaluation and management
[2019-09-11] MEDS: Dextrose 5%-0.9% NaCl 1,000 ML IV SCH (21:42)
[2019-09-12 01:17] LABS: BLOOD UREA NITROGEN,BUN 12 mg/dL (7.0-18.0); CARBON DIOXIDE,CO2 15.1 mmol/L (21.0-32.0); CHLORIDE,CL 111 mmol/L (98-107); GLUCOSE RANDOM 132 mg/dL (74-106); POTASSIUM,K 3.1 mmol/L (3.5-5.1); SODIUM,NA 141 mmol/L (136-145)
[2019-09-12] MEDS ORDERED: Calcium Gluconate 10% 1 GM/10 ML SDV IV ONE ×2 (01:29→05:05)
[2019-09-12] MEDS ORDERED: Potassium Chloride 20 MEQ Tab.ER PO ONE ×3 (01:38→23:55)
[2019-09-12] MEDS ORDERED: Magnesium Sulfate/Water 2 GM in Premix Bag 1 BAG IV ONE ×2 (01:38→15:00)
[2019-09-12] MEDS ORDERED: Phosphorus #1 250 MG Tab PO ONE ×3 (01:41→14:58)
--- NOTE | 2019-09-12 01:47 | PN ---
THC Physician - Brief Progress [id number]/15/2019 01:43[facility] Jamaal Hall, [place] - MIKEYN (NICO) - SHAUN Justino HOFFMANNharshad of Service 09/12/2019 01:43HPI/Events of Note RN and I discussed most recent BMP, bicarb is betterGetting her IV k phos, but phos has drop ped to 1.0 on this checkWill also give a dose of neutraphos x 1 as wellMag is 1.8, 2 gram iV magnesiu m orderedIonized calcium is low at 4.0, 1 gram IV calcium gluconate orderedK is 3.1, is getting her I V k phos anyway, will also give 40 meq oral potasisum nowClarfied with RN. No alcohol history reporte d. Awake, alert. No symptoms. On very low dose insulin drip. UA is back with no infection, with keton es. Possibly, this may all be related to poor oral intake/starvation. Monitor glucose and continue se rial monitoring.Interventions Major-Electrolyte abnormality - evaluation and managementMinor-Communic ation with other healthcare providers and/or familyElectronically Signed by: Efren Garvin) on 01:47
[2019-09-12 04:41] LABS: BLOOD UREA NITROGEN,BUN 10 mg/dL (7.0-18.0); CARBON DIOXIDE,CO2 14.4 mmol/L (21.0-32.0); CHLORIDE,CL 112 mmol/L (98-107); GLUCOSE RANDOM 128 mg/dL (74-106); SODIUM,NA 140 mmol/L (136-145)
--- NOTE | 2019-09-12 05:09 | PN ---
THC Physician - Brief Progress [id number]/15/2019 05:07[facility] Jamaal hernandez, LATIA - SHAUN (NICO) - Yehuda LOPEZ of Service 09/12/2019 05:07HPI/Events of Note Calcium gluconate 1 gram to be repeated as corrected calcium is still lowK, mag, phos have a ll improvedContinue monitoring Likely should be able to transition off the drip today, and caution wi th introducing diet in this patient with electrolyte defects/starvation ketosisInterventions Major-El ectrolyte abnormality - evaluation and managementElectronically Signed by: Efren Garvin) on 09/12 05:08
[2019-09-12] MEDS ORDERED: Famotidine 20 MG/2 ML SDV IVPUSH ONE (05:19)
--- NOTE | 2019-09-12 05:23 | PN ---
THC Physician - Brief Progress [id number]/15/2019 05:20[facility] Jamaal hernandez, LATIA - SHAUN (NICO) - Yehuda LOPEZ of Service 09/12/2019 05:20HPI/Events of Note RN notified me that patient thinks one of the pills she took earlier might be 'stuck' in her epigastric areaNo throat painNo resp distressNo abdominal painNo vomitingN change in vitalsNo abdomi nal tenderness per RNNot sure if she has an underlying GI issue that may need to be addressed if symp toms persistEasily able to cough and no distress on camPepcid x 1 ordered and spoke with RNInterventi ons Minor-Routine modifications to care plan (e.g. PRN medications for pain, fever)Electronically Sig ivy by: Efren Garvin) on 09/12/2019 05:22
[2019-09-12] MEDS: Dextrose 5%-0.9% NaCl 1,000 ML IV SCH ×2 (05:53→11:38)
[2019-09-12 08:47] LABS: BLOOD UREA NITROGEN,BUN 9 mg/dL (7.0-18.0); CARBON DIOXIDE,CO2 16.2 mmol/L (21.0-32.0); CHLORIDE,CL 111 mmol/L (98-107); GLUCOSE RANDOM 160 mg/dL (74-106); POTASSIUM,K 3.2 mmol/L (3.5-5.1); SODIUM,NA 142 mmol/L (136-145)
[2019-09-12 08:52] VITALS: PULSE 87
[2019-09-12] MEDS ORDERED: Potassium Chloride Riders 40 MEQ in Premix Bag 1 BAG IV ONE (09:20)
[2019-09-12] MEDS ORDERED: Potassium Phosphates 20 MMOLE in Sodium Chloride 0.9% 250 ML IV ONE (09:43)
[2019-09-12] MEDS ORDERED: Sodium Chloride 0.9% 1,000 ML IV SCH ×2 (10:00→11:45)
[2019-09-12] MEDS: Pantoprazole 40 MG in Sodium Chloride 0.9% 10 ML IV SCH (10:10)
--- NOTE | 2019-09-12 11:42 | PN ---
THC Physician - Brief Progress [id number]/15/2019 09:48[facility] [place], [place] - MWN (NICO) - MWN Justino HOFFMANNharshad of Service 09/12/2019 09:48HPI/Events of Note eICU Progress [id number] admitted for ketoacidosis. History obtained primarily from review of E MR.Camera exam: Laying in bed. Vitals monitor reviewed. Vitals: reviewedLabs: reviewedRadiology: revi ewedMeds: reviewedeICU Impression and Recommendations:Non-anion gap metabolic acidosis with ketonemia , of uncertain etiology- agree with continuation of insulin drip with dextrose infusion if acidemia i s thought to be primarily from ketonemia. Suggest transitioning to balanced rather than isotonic jennifer talloid in light of hyperchloremia (ie LR)- repeat ABG to assess acid-base status, depending on resul ts would recommend initiation of bicarbonate drip to make up for bicarbonate deficit. We are availabl e to assist with this if desired by primary service-consider serum osmolality for calculation of osmo kaylin gap- repeat serum ketones for some assessment of improving acid-base status, especially if patien t remains acidemic on ABGHypocalcemia, hypophosphatemia, hypokalemia- replenish electrolytesDVT and G I prophylaxis as appropriate.We are available to assist in further clarification, or implementation o f any of the above recommendations if desired by primary service.Thank you for allowing us to partici rojo in the care of this patient.The above note transcribed via dictation software. Please excuse any errors.Interventions Major-Electrolyte abnormality - evaluation and management
[2019-09-12] MEDS ORDERED: Sodium Phosphate 20 MMOLE in Sodium Chloride 0.9% 250 ML IV ONE (11:45)
--- NOTE | 2019-09-12 11:50 | PCM.PN ---
<Tonio Lopez - Last Filed: 09/12/19 11:44> - General Info Date of Service: 09/12/19 Subjective Update: doing better this morning. More alert. Would like to try drinking water. Anion gap has not closed. Most recent gap of 14. - Patient Data Vitals - Most Recent: Last Vital Signs Temp 36.5 C 09/12/19 08:00 Pulse 87 09/12/19 08:00 Resp 14 09/12/19 11:00 BP 88/55 L 09/12/19 11:00 Pulse Ox 98 09/12/19 11:00 Weight - Most Recent: 40.37 kg I&O - Last 24 Hours: Intake & Output 09/11/19 09/12/19 09/12/19 22:59 06:59 14:59 Intake Total 1101 2680 988 Output Total 2200 Balance 1101 480 988 Lab Results Last 24 Hours: Laboratory Results - last 24 hr 09/11/19 09/11/19 09/11/19 Range/Units 16:21 16:35 16:35 WBC (4.0-11.0) K/uL RBC (4.30-5.90) M/uL Hgb (12.0-16.0) g/dL Hct (36.0-46.0) % MCV (80.0-98.0) fL MCH (27.0-32.0) pg MCHC (31.0-37.0) g/dL RDW Std Deviation (28.0-62.0) fl RDW Coeff of Mary (11.0-15.0) % Plt Count (150-400) K/uL MPV (7.40-12.00) fL Neut % (Auto) (48.0-80.0) % Lymph % (Auto) (16.0-40.0) % [place] % (Auto) (0.0-15.0) % Eos % (Auto) (0.0-7.0) % Baso % (Auto) (0.0-1.5) % Neut # (Auto) (1.4-5.7) K/uL Lymph # (Auto) (0.6-2.4) K/uL [place] # (Auto) (0.0-0.8) K/uL Eos # (Auto) (0.0-0.7) K/uL Baso # (Auto) (0.0-0.1) K/uL Nucleated RBC % /100WBC Nucleated RBCs # K/uL INR ABG pH 7.054 L* (7.35-7.45) ABG pCO2 16 L (35-45) mmHG ABG pO2 103 H (75-100) mmHG ABG HCO3 5 L (22-26) mEq/L ABG Total CO2 4.3 ABG Base Excess -24.0 L (-2.0-2.0) Ionized Calcium (4.6-5.1) mg/dL Lactate (0.20-2.00) mmol/L Sodium 133 L (136-145) mmol/L Potassium 4.8 (3.5-5.1) mmol/L Chloride 100 (98-107) mmol/L Carbon Dioxide 7.3 L (21.0-32.0) mmol/L BUN 21 H (7.0-18.0) mg/dL Creatinine 1.1 H (0.6-1.0) mg/dL Est Cr Clr Drug Dosing 37.26 mL/min Estimated GFR (MDRD) > 60.0 ml/min Glucose 280 H (74-106) mg/dL POC Glucose (60-110) mg/dL Calcium 8.6 (8.5-10.1) mg/dL Phosphorus 3.7 (2.6-4.7) mg/dL Magnesium 2.4 (1.8-2.4) mg/dL Total Bilirubin 0.6 (0.2-1.0) mg/dL AST 21 (15-37) IU/L ALT 25 (14-63) IU/L Alkaline Phosphatase 74 (46-116) U/L Creatine Kinase (26-308) U/L Troponin I < 0.050 (0.000-0.056) ng/mL Total Protein 7.6 (6.4-8.2) g/dL Albumin 3.9 (3.4-5.0) g/dL Globulin 3.7 (2.6-4.0) g/dL Albumin/Globulin Ratio 1.1 (0.9-1.6) Triglycerides (0-200) mg/dL Lipase 314 (73-393) U/L Urine Color Urine Appearance Urine pH (5.0-8.0) Ur Specific [place] (1.001-1.035) Urine Protein (NEGATIVE) mg/dL Urine Glucose (UA) (NEGATIVE) mg/dL Urine Ketones (NEGATIVE) mg/dL Urine Occult Blood (NEGATIVE) Urine Nitrite (NEGATIVE) Urine Bilirubin (NEGATIVE) Urine Urobilinogen (<2.0) EU/dL Ur Leukocyte Esterase (NEGATIVE) Urine RBC (0-2/HPF) Urine WBC (0-5/HPF) Ur Epithelial Cells (NONE-FEW) Urine Bacteria (NEGATIVE) Ketones (NEG) 09/11/19 09/11/19 09/11/19 Range/Units 16:38 16:38 16:38 WBC 9.46 (4.0-11.0) K/uL RBC 5.21 (4.30-5.90) M/uL Hgb 15.4 (12.0-16.0) g/dL Hct 46.9 H (36.0-46.0) % MCV 90.0 (80.0-98.0) fL MCH 29.6 (27.0-32.0) pg MCHC 32.8 (31.0-37.0) g/dL RDW Std Deviation 43.8 (28.0-62.0) fl RDW Coeff of Mary 13 (11.0-15.0) % Plt Count 217 (150-400) K/uL MPV 9.10 (7.40-12.00) fL Neut % (Auto) 85.0 H (48.0-80.0) % Lymph % (Auto) 9.5 L (16.0-40.0) % [place] % (Auto) 5.4 (0.0-15.0) % Eos % (Auto) 0.0 (0.0-7.0) % Baso % (Auto) 0.1 (0.0-1.5) % Neut # (Auto) 8.0 H (1.4-5.7) K/uL Lymph # (Auto) 0.9 (0.6-2.4) K/uL [place] # (Auto) 0.5 (0.0-0.8) K/uL Eos # (Auto) 0.0 (0.0-0.7) K/uL Baso # (Auto) 0.0 (0.0-0.1) K/uL Nucleated RBC % 0.0 /100WBC Nucleated RBCs # 0 K/uL INR 0.90 ABG pH (7.35-7.45) ABG pCO2 (35-45) mmHG ABG pO2 (75-100) mmHG ABG HCO3 (22-26) mEq/L ABG Total CO2 ABG Base Excess (-2.0-2.0) Ionized Calcium (4.6-5.1) mg/dL Lactate (0.20-2.00) mmol/L Sodium (136-145) mmol/L Potassium (3.5-5.1) mmol/L Chloride (98-107) mmol/L Carbon Dioxide (21.0-32.0) mmol/L BUN (7.0-18.0) mg/dL Creatinine (0.6-1.0) mg/dL Est Cr Clr Drug Dosing mL/min Estimated GFR (MDRD) ml/min Glucose (74-106) mg/dL POC Glucose (60-110) mg/dL Calcium (8.5-10.1) mg/dL Phosphorus (2.6-4.7) mg/dL Magnesium (1.8-2.4) mg/dL Total Bilirubin (0.2-1.0) mg/dL AST (15-37) IU/L ALT (14-63) IU/L Alkaline Phosphatase (46-116) U/L Creatine Kinase (26-308) U/L Troponin I (0.000-0.056) ng/mL Total Protein (6.4-8.2) g/dL Albumin (3.4-5.0) g/dL Globulin (2.6-4.0) g/dL Albumin/Globulin Ratio (0.9-1.6) Triglycerides (0-200) mg/dL Lipase (73-393) U/L Urine Color Urine Appearance Urine pH (5.0-8.0) Ur Specific [place] (1.001-1.035) Urine Protein (NEGATIVE) mg/dL Urine Glucose (UA) (NEGATIVE) mg/dL Urine Ketones (NEGATIVE) mg/dL Urine Occult Blood (NEGATIVE) Urine Nitrite (NEGATIVE) Urine Bilirubin (NEGATIVE) Urine Urobilinogen (<2.0) EU/dL Ur Leukocyte Esterase (NEGATIVE) Urine RBC (0-2/HPF) Urine WBC (0-5/HPF) Ur Epithelial Cells (NONE-FEW) Urine Bacteria (NEGATIVE) Ketones MODERATE H (NEG) 09/11/19 09/11/19 09/11/19 Range/Units 16:38 18:13 19:15 WBC (4.0-11.0) K/uL RBC (4.30-5.90) M/uL Hgb (12.0-16.0) g/dL Hct (36.0-46.0) % MCV (80.0-98.0) fL MCH (27.0-32.0) pg MCHC (31.0-37.0) g/dL RDW Std Deviation (28.0-62.0) fl RDW Coeff of Mary (11.0-15.0) % Plt Count (150-400) K/uL MPV (7.40-12.00) fL Neut % (Auto) (48.0-80.0) % Lymph % (Auto) (16.0-40.0) % [place] % (Auto) (0.0-15.0) % Eos % (Auto) (0.0-7.0) % Baso % (Auto) (0.0-1.5) % Neut # (Auto) (1.4-5.7) K/uL Lymph # (Auto) (0.6-2.4) K/uL [place] # (Auto) (0.0-0.8) K/uL Eos # (Auto) (0.0-0.7) K/uL Baso # (Auto) (0.0-0.1) K/uL Nucleated RBC % /100WBC Nucleated RBCs # K/uL INR ABG pH (7.35-7.45) ABG pCO2 (35-45) mmHG ABG pO2 (75-100) mmHG ABG HCO3 (22-26) mEq/L ABG Total CO2 ABG Base Excess (-2.0-2.0) Ionized Calcium (4.6-5.1) mg/dL Lactate (0.20-2.00) mmol/L Sodium (136-145) mmol/L Potassium (3.5-5.1) mmol/L Chloride (98-107) mmol/L Carbon Dioxide (21.0-32.0) mmol/L BUN (7.0-18.0) mg/dL Creatinine (0.6-1.0) mg/dL Est Cr Clr Drug Dosing mL/min Estimated GFR (MDRD) ml/min Glucose (74-106) mg/dL POC Glucose 206 H 171 H (60-110) mg/dL Calcium (8.5-10.1) mg/dL Phosphorus (2.6-4.7) mg/dL Magnesium (1.8-2.4) mg/dL Total Bilirubin (0.2-1.0) mg/dL AST (15-37) IU/L ALT (14-63) IU/L Alkaline Phosphatase (46-116) U/L Creatine Kinase 47 (26-308) U/L Troponin I (0.000-0.056) ng/mL Total Protein (6.4-8.2) g/dL Albumin (3.4-5.0) g/dL Globulin (2.6-4.0) g/dL Albumin/Globulin Ratio (0.9-1.6) Triglycerides (0-200) mg/dL Lipase (73-393) U/L Urine Color Urine Appearance Urine pH (5.0-8.0) Ur Specific [place] (1.001-1.035) Urine Protein (NEGATIVE) mg/dL Urine Glucose (UA) (NEGATIVE) mg/dL Urine Ketones (NEGATIVE) mg/dL Urine Occult Blood (NEGATIVE) Urine Nitrite (NEGATIVE) Urine Bilirubin (NEGATIVE) Urine Urobilinogen (<2.0) EU/dL Ur Leukocyte Esterase (NEGATIVE) Urine RBC (0-2/HPF) Urine WBC (0-5/HPF) Ur Epithelial Cells (NONE-FEW) Urine Bacteria (NEGATIVE) Ketones (NEG) 09/11/19 09/11/19 09/11/19 Range/Units 20:12 20:12 20:12 WBC (4.0-11.0) K/uL RBC (4.30-5.90) M/uL Hgb (12.0-16.0) g/dL Hct (36.0-46.0) % MCV (80.0-98.0) fL MCH (27.0-32.0) pg MCHC (31.0-37.0) g/dL RDW Std Deviation (28.0-62.0) fl RDW Coeff of Mary (11.0-15.0) % Plt Count (150-400) K/uL MPV (7.40-12.00) fL Neut % (Auto) (48.0-80.0) % Lymph % (Auto) (16.0-40.0) % [place] % (Auto) (0.0-15.0) % Eos % (Auto) (0.0-7.0) % Baso % (Auto) (0.0-1.5) % Neut # (Auto) (1.4-5.7) K/uL Lymph # (Auto) (0.6-2.4) K/uL [place] # (Auto) (0.0-0.8) K/uL Eos # (Auto) (0.0-0.7) K/uL Baso # (Auto) (0.0-0.1) K/uL Nucleated RBC % /100WBC Nucleated RBCs # K/uL INR ABG pH (7.35-7.45) ABG pCO2 (35-45) mmHG ABG pO2 (75-100) mmHG ABG HCO3 (22-26) mEq/L ABG Total CO2 ABG Base Excess (-2.0-2.0) Ionized Calcium (4.6-5.1) mg/dL Lactate 1.3 (0.20-2.00) mmol/L Sodium 140 (136-145) mmol/L Potassium 4.0 (3.5-5.1) mmol/L Chloride 106 (98-107) mmol/L Carbon Dioxide 12.3 L (21.0-32.0) mmol/L BUN 15 (7.0-18.0) mg/dL Creatinine 0.8 (0.6-1.0) mg/dL Est Cr Clr Drug Dosing 51.23 mL/min Estimated GFR (MDRD) > 60.0 ml/min Glucose 142 H (74-106) mg/dL POC Glucose (60-110) mg/dL Calcium 7.2 L (8.5-10.1) mg/dL Phosphorus 1.4 L (2.6-4.7) mg/dL Magnesium 1.9 (1.8-2.4) mg/dL Total Bilirubin (0.2-1.0) mg/dL AST (15-37) IU/L ALT (14-63) IU/L Alkaline Phosphatase (46-116) U/L Creatine Kinase (26-308) U/L Troponin I (0.000-0.056) ng/mL Total Protein (6.4-8.2) g/dL Albumin (3.4-5.0) g/dL Globulin (2.6-4.0) g/dL Albumin/Globulin Ratio (0.9-1.6) Triglycerides 148 (0-200) mg/dL Lipase (73-393) U/L Urine Color Urine Appearance Urine pH (5.0-8.0) Ur Specific [place] (1.001-1.035) Urine Protein (NEGATIVE) mg/dL Urine Glucose (UA) (NEGATIVE) mg/dL Urine Ketones (NEGATIVE) mg/dL Urine Occult Blood (NEGATIVE) Urine Nitrite (NEGATIVE) Urine Bilirubin (NEGATIVE) Urine Urobilinogen (<2.0) EU/dL Ur Leukocyte Esterase (NEGATIVE) Urine RBC (0-2/HPF) Urine WBC (0-5/HPF) Ur Epithelial Cells (NONE-FEW) Urine Bacteria (NEGATIVE) Ketones (NEG) 09/11/19 09/11/19 09/11/19 Range/Units 21:27 21:50 22:35 WBC (4.0-11.0) K/uL RBC (4.30-5.90) M/uL Hgb (12.0-16.0) g/dL Hct (36.0-46.0) % MCV (80.0-98.0) fL MCH (27.0-32.0) pg MCHC (31.0-37.0) g/dL RDW Std Deviation (28.0-62.0) fl RDW Coeff of Mary (11.0-15.0) % Plt Count (150-400) K/uL MPV (7.40-12.00) fL Neut % (Auto) (48.0-80.0) % Lymph % (Auto) (16.0-40.0) % [place] % (Auto) (0.0-15.0) % Eos % (Auto) (0.0-7.0) % Baso % (Auto) (0.0-1.5) % Neut # (Auto) (1.4-5.7) K/uL Lymph # (Auto) (0.6-2.4) K/uL [place] # (Auto) (0.0-0.8) K/uL Eos # (Auto) (0.0-0.7) K/uL Baso # (Auto) (0.0-0.1) K/uL Nucleated RBC % /100WBC Nucleated RBCs # K/uL INR ABG pH (7.35-7.45) ABG pCO2 (35-45) mmHG ABG pO2 (75-100) mmHG ABG HCO3 (22-26) mEq/L ABG Total CO2 ABG Base Excess (-2.0-2.0) Ionized Calcium (4.6-5.1) mg/dL Lactate (0.20-2.00) mmol/L Sodium (136-145) mmol/L Potassium (3.5-5.1) mmol/L Chloride (98-107) mmol/L Carbon Dioxide (21.0-32.0) mmol/L BUN (7.0-18.0) mg/dL Creatinine (0.6-1.0) mg/dL Est Cr Clr Drug Dosing mL/min Estimated GFR (MDRD) ml/min Glucose (74-106) mg/dL POC Glucose 104 117 H (60-110) mg/dL Calcium (8.5-10.1) mg/dL Phosphorus (2.6-4.7) mg/dL Magnesium (1.8-2.4) mg/dL Total Bilirubin (0.2-1.0) mg/dL AST (15-37) IU/L ALT (14-63) IU/L Alkaline Phosphatase (46-116) U/L Creatine Kinase (26-308) U/L Troponin I (0.000-0.056) ng/mL Total Protein (6.4-8.2) g/dL Albumin (3.4-5.0) g/dL Globulin (2.6-4.0) g/dL Albumin/Globulin Ratio (0.9-1.6) Triglycerides (0-200) mg/dL Lipase (73-393) U/L Urine Color YELLOW Urine Appearance CLEAR Urine pH 5.5 (5.0-8.0) Ur Specific [place] 1.025 (1.001-1.035) Urine Protein TRACE H (NEGATIVE) mg/dL Urine Glucose (UA) 500 H (NEGATIVE) mg/dL Urine Ketones >=80 (NEGATIVE) mg/dL Urine Occult Blood SMALL H (NEGATIVE) Urine Nitrite NEGATIVE (NEGATIVE) Urine Bilirubin NEGATIVE (NEGATIVE) Urine Urobilinogen 0.2 (<2.0) EU/dL Ur Leukocyte Esterase NEGATIVE (NEGATIVE) Urine RBC 2-3 (0-2/HPF) Urine WBC 0-1 (0-5/HPF) Ur Epithelial Cells RARE (NONE-FEW) Urine Bacteria RARE (NEGATIVE) Ketones (NEG) 09/11/19 09/12/19 09/12/19 Range/Units 23:30 00:22 00:39 WBC (4.0-11.0) K/uL RBC (4.30-5.90) M/uL Hgb (12.0-16.0) g/dL Hct (36.0-46.0) % MCV (80.0-98.0) fL MCH (27.0-32.0) pg MCHC (31.0-37.0) g/dL RDW Std Deviation (28.0-62.0) fl RDW Coeff of Mary (11.0-15.0) % Plt Count (150-400) K/uL MPV (7.40-12.00) fL Neut % (Auto) (48.0-80.0) % Lymph % (Auto) (16.0-40.0) % [place] % (Auto) (0.0-15.0) % Eos % (Auto) (0.0-7.0) % Baso % (Auto) (0.0-1.5) % Neut # (Auto) (1.4-5.7) K/uL Lymph # (Auto) (0.6-2.4) K/uL [place] # (Auto) (0.0-0.8) K/uL Eos # (Auto) (0.0-0.7) K/uL Baso # (Auto) (0.0-0.1) K/uL Nucleated RBC % /100WBC Nucleated RBCs # K/uL INR ABG pH (7.35-7.45) ABG pCO2 (35-45) mmHG ABG pO2 (75-100) mmHG ABG HCO3 (22-26) mEq/L ABG Total CO2 ABG Base Excess (-2.0-2.0) Ionized Calcium 4.0 L (4.6-5.1) mg/dL Lactate (0.20-2.00) mmol/L Sodium (136-145) mmol/L Potassium (3.5-5.1) mmol/L Chloride (98-107) mmol/L Carbon Dioxide (21.0-32.0) mmol/L BUN (7.0-18.0) mg/dL Creatinine (0.6-1.0) mg/dL Est Cr Clr Drug Dosing mL/min Estimated GFR (MDRD) ml/min Glucose (74-106) mg/dL POC Glucose 120 H 113 H (60-110) mg/dL Calcium (8.5-10.1) mg/dL Phosphorus (2.6-4.7) mg/dL Magnesium (1.8-2.4) mg/dL Total Bilirubin (0.2-1.0) mg/dL AST (15-37) IU/L ALT (14-63) IU/L Alkaline Phosphatase (46-116) U/L Creatine Kinase (26-308) U/L Troponin I (0.000-0.056) ng/mL Total Protein (6.4-8.2) g/dL Albumin (3.4-5.0) g/dL Globulin (2.6-4.0) g/dL Albumin/Globulin Ratio (0.9-1.6) Triglycerides (0-200) mg/dL Lipase (73-393) U/L Urine Color Urine Appearance Urine pH (5.0-8.0) Ur Specific [place] (1.001-1.035) Urine Protein (NEGATIVE) mg/dL Urine Glucose (UA) (NEGATIVE) mg/dL Urine Ketones (NEGATIVE) mg/dL Urine Occult Blood (NEGATIVE) Urine Nitrite (NEGATIVE) Urine Bilirubin (NEGATIVE) Urine Urobilinogen (<2.0) EU/dL Ur Leukocyte Esterase (NEGATIVE) Urine RBC (0-2/HPF) Urine WBC (0-5/HPF) Ur Epithelial Cells (NONE-FEW) Urine Bacteria (NEGATIVE) Ketones (NEG) 09/12/19 09/12/19 09/12/19 Range/Units 00:39 01:32 02:30 WBC (4.0-11.0) K/uL RBC (4.30-5.90) M/uL Hgb (12.0-16.0) g/dL Hct (36.0-46.0) % MCV (80.0-98.0) fL MCH (27.0-32.0) pg MCHC (31.0-37.0) g/dL RDW Std Deviation (28.0-62.0) fl RDW Coeff of Mary (11.0-15.0) % Plt Count (150-400) K/uL MPV (7.40-12.00) fL Neut % (Auto) (48.0-80.0) % Lymph % (Auto) (16.0-40.0) % [place] % (Auto) (0.0-15.0) % Eos % (Auto) (0.0-7.0) % Baso % (Auto) (0.0-1.5) % Neut # (Auto) (1.4-5.7) K/uL Lymph # (Auto) (0.6-2.4) K/uL [place] # (Auto) (0.0-0.8) K/uL Eos # (Auto) (0.0-0.7) K/uL Baso # (Auto) (0.0-0.1) K/uL Nucleated RBC % /100WBC Nucleated RBCs # K/uL INR ABG pH (7.35-7.45) ABG pCO2 (35-45) mmHG ABG pO2 (75-100) mmHG ABG HCO3 (22-26) mEq/L ABG Total CO2 ABG Base Excess (-2.0-2.0) Ionized Calcium (4.6-5.1) mg/dL Lactate (0.20-2.00) mmol/L Sodium 141 (136-145) mmol/L Potassium 3.1 L (3.5-5.1) mmol/L Chloride 111 H (98-107) mmol/L Carbon Dioxide 15.1 L (21.0-32.0) mmol/L BUN 12 (7.0-18.0) mg/dL Creatinine 0.8 (0.6-1.0) mg/dL Est Cr Clr Drug Dosing 51.23 mL/min Estimated GFR (MDRD) > 60.0 ml/min Glucose 132 H (74-106) mg/dL POC Glucose 124 H 128 H (60-110) mg/dL Calcium 6.4 L (8.5-10.1) mg/dL Phosphorus 1.0 L (2.6-4.7) mg/dL Magnesium 1.8 (1.8-2.4) mg/dL Total Bilirubin (0.2-1.0) mg/dL AST (15-37) IU/L ALT (14-63) IU/L Alkaline Phosphatase (46-116) U/L Creatine Kinase (26-308) U/L Troponin I (0.000-0.056) ng/mL Total Protein (6.4-8.2) g/dL Albumin (3.4-5.0) g/dL Globulin (2.6-4.0) g/dL Albumin/Globulin Ratio (0.9-1.6) Triglycerides (0-200) mg/dL Lipase (73-393) U/L Urine Color Urine Appearance Urine pH (5.0-8.0) Ur Specific [place] (1.001-1.035) Urine Protein (NEGATIVE) mg/dL Urine Glucose (UA) (NEGATIVE) mg/dL Urine Ketones (NEGATIVE) mg/dL Urine Occult Blood (NEGATIVE) Urine Nitrite (NEGATIVE) Urine Bilirubin (NEGATIVE) Urine Urobilinogen (<2.0) EU/dL Ur Leukocyte Esterase (NEGATIVE) Urine RBC (0-2/HPF) Urine WBC (0-5/HPF) Ur Epithelial Cells (NONE-FEW) Urine Bacteria (NEGATIVE) Ketones (NEG) 09/12/19 09/12/19 09/12/19 Range/Units 03:31 04:10 04:10 WBC 5.73 (4.0-11.0) K/uL RBC 4.16 L (4.30-5.90) M/uL Hgb 12.1 (12.0-16.0) g/dL Hct 35.7 L (36.0-46.0) % MCV 85.8 (80.0-98.0) fL MCH 29.1 (27.0-32.0) pg MCHC 33.9 (31.0-37.0) g/dL RDW Std Deviation 40.9 (28.0-62.0) fl RDW Coeff of Mary 13 (11.0-15.0) % Plt Count 178 (150-400) K/uL MPV 8.90 (7.40-12.00) fL Neut % (Auto) 66.6 (48.0-80.0) % Lymph % (Auto) 24.1 (16.0-40.0) % [place] % (Auto) 8.9 (0.0-15.0) % Eos % (Auto) 0.2 (0.0-7.0) % Baso % (Auto) 0.2 (0.0-1.5) % Neut # (Auto) 3.8 (1.4-5.7) K/uL Lymph # (Auto) 1.4 (0.6-2.4) K/uL [place] # (Auto) 0.5 (0.0-0.8) K/uL Eos # (Auto) 0.0 (0.0-0.7) K/uL Baso # (Auto) 0.0 (0.0-0.1) K/uL Nucleated RBC % 0.0 /100WBC Nucleated RBCs # 0 K/uL INR ABG pH (7.35-7.45) ABG pCO2 (35-45) mmHG ABG pO2 (75-100) mmHG ABG HCO3 (22-26) mEq/L ABG Total CO2 ABG Base Excess (-2.0-2.0) Ionized Calcium (4.6-5.1) mg/dL Lactate (0.20-2.00) mmol/L Sodium 140 (136-145) mmol/L Potassium 4.0 (3.5-5.1) mmol/L Chloride 112 H (98-107) mmol/L Carbon Dioxide 14.4 L (21.0-32.0) mmol/L BUN 10 (7.0-18.0) mg/dL Creatinine 0.7 (0.6-1.0) mg/dL Est Cr Clr Drug Dosing 58.55 mL/min Estimated GFR (MDRD) > 60.0 ml/min Glucose 128 H (74-106) mg/dL POC Glucose 119 H (60-110) mg/dL Calcium 6.7 L (8.5-10.1) mg/dL Phosphorus 2.7 (2.6-4.7) mg/dL Magnesium 2.7 H (1.8-2.4) mg/dL Total Bilirubin (0.2-1.0) mg/dL AST (15-37) IU/L ALT (14-63) IU/L Alkaline Phosphatase (46-116) U/L Creatine Kinase (26-308) U/L Troponin I (0.000-0.056) ng/mL Total Protein (6.4-8.2) g/dL Albumin 2.6 L (3.4-5.0) g/dL Globulin (2.6-4.0) g/dL Albumin/Globulin Ratio (0.9-1.6) Triglycerides (0-200) mg/dL Lipase (73-393) U/L Urine Color Urine Appearance Urine pH (5.0-8.0) Ur Specific Goessel (1.001-1.035) Urine Protein (NEGATIVE) mg/dL Urine Glucose (UA) (NEGATIVE) mg/dL Urine Ketones (NEGATIVE) mg/dL Urine Occult Blood (NEGATIVE) Urine Nitrite (NEGATIVE) Urine Bilirubin (NEGATIVE) Urine Urobilinogen (<2.0) EU/dL Ur Leukocyte Esterase (NEGATIVE) Urine RBC (0-2/HPF) Urine WBC (0-5/HPF) Ur Epithelial Cells (NONE-FEW) Urine Bacteria (NEGATIVE) Ketones (NEG) 09/12/19 09/12/19 09/12/19 Range/Units 04:28 05:35 06:39 WBC (4.0-11.0) K/uL RBC (4.30-5.90) M/uL Hgb (12.0-16.0) g/dL Hct (36.0-46.0) % MCV (80.0-98.0) fL MCH (27.0-32.0) pg MCHC (31.0-37.0) g/dL RDW Std Deviation (28.0-62.0) fl RDW Coeff of Mary (11.0-15.0) % Plt Count (150-400) K/uL MPV (7.40-12.00) fL Neut % (Auto) (48.0-80.0) % Lymph % (Auto) (16.0-40.0) % [place] % (Auto) (0.0-15.0) % Eos % (Auto) (0.0-7.0) % Baso % (Auto) (0.0-1.5) % Neut # (Auto) (1.4-5.7) K/uL Lymph # (Auto) (0.6-2.4) K/uL [place] # (Auto) (0.0-0.8) K/uL Eos # (Auto) (0.0-0.7) K/uL Baso # (Auto) (0.0-0.1) K/uL Nucleated RBC % /100WBC Nucleated RBCs # K/uL INR ABG pH (7.35-7.45) ABG pCO2 (35-45) mmHG ABG pO2 (75-100) mmHG ABG HCO3 (22-26) mEq/L ABG Total CO2 ABG Base Excess (-2.0-2.0) Ionized Calcium (4.6-5.1) mg/dL Lactate (0.20-2.00) mmol/L Sodium (136-145) mmol/L Potassium (3.5-5.1) mmol/L Chloride (98-107) mmol/L Carbon Dioxide (21.0-32.0) mmol/L BUN (7.0-18.0) mg/dL Creatinine (0.6-1.0) mg/dL Est Cr Clr Drug Dosing mL/min Estimated GFR (MDRD) ml/min Glucose (74-106) mg/dL POC Glucose 117 H 128 H 131 H (60-110) mg/dL Calcium (8.5-10.1) mg/dL Phosphorus (2.6-4.7) mg/dL Magnesium (1.8-2.4) mg/dL Total Bilirubin (0.2-1.0) mg/dL AST (15-37) IU/L ALT (14-63) IU/L Alkaline Phosphatase (46-116) U/L Creatine Kinase (26-308) U/L Troponin I (0.000-0.056) ng/mL Total Protein (6.4-8.2) g/dL Albumin (3.4-5.0) g/dL Globulin (2.6-4.0) g/dL Albumin/Globulin Ratio (0.9-1.6) Triglycerides (0-200) mg/dL Lipase (73-393) U/L Urine Color Urine Appearance Urine pH (5.0-8.0) Ur Specific Goessel (1.001-1.035) Urine Protein (NEGATIVE) mg/dL Urine Glucose (UA) (NEGATIVE) mg/dL Urine Ketones (NEGATIVE) mg/dL Urine Occult Blood (NEGATIVE) Urine Nitrite (NEGATIVE) Urine Bilirubin (NEGATIVE) Urine Urobilinogen (<2.0) EU/dL Ur Leukocyte Esterase (NEGATIVE) Urine RBC (0-2/HPF) Urine WBC (0-5/HPF) Ur Epithelial Cells (NONE-FEW) Urine Bacteria (NEGATIVE) Ketones (NEG) 09/12/19 09/12/19 09/12/19 Range/Units 07:32 08:20 08:39 WBC (4.0-11.0) K/uL RBC (4.30-5.90) M/uL Hgb (12.0-16.0) g/dL Hct (36.0-46.0) % MCV (80.0-98.0) fL MCH (27.0-32.0) pg MCHC (31.0-37.0) g/dL RDW Std Deviation (28.0-62.0) fl RDW Coeff of Mary (11.0-15.0) % Plt Count (150-400) K/uL MPV (7.40-12.00) fL Neut % (Auto) (48.0-80.0) % Lymph % (Auto) (16.0-40.0) % [place] % (Auto) (0.0-15.0) % Eos % (Auto) (0.0-7.0) % Baso % (Auto) (0.0-1.5) % Neut # (Auto) (1.4-5.7) K/uL Lymph # (Auto) (0.6-2.4) K/uL [place] # (Auto) (0.0-0.8) K/uL Eos # (Auto) (0.0-0.7) K/uL Baso # (Auto) (0.0-0.1) K/uL Nucleated RBC % /100WBC Nucleated RBCs # K/uL INR ABG pH (7.35-7.45) ABG pCO2 (35-45) mmHG ABG pO2 (75-100) mmHG ABG HCO3 (22-26) mEq/L ABG Total CO2 ABG Base Excess (-2.0-2.0) Ionized Calcium (4.6-5.1) mg/dL Lactate (0.20-2.00) mmol/L Sodium 142 (136-145) mmol/L Potassium 3.2 L (3.5-5.1) mmol/L Chloride 111 H (98-107) mmol/L Carbon Dioxide 16.2 L (21.0-32.0) mmol/L BUN 9 (7.0-18.0) mg/dL Creatinine 0.7 (0.6-1.0) mg/dL Est Cr Clr Drug Dosing 58.55 mL/min Estimated GFR (MDRD) > 60.0 ml/min Glucose 160 H (74-106) mg/dL POC Glucose 149 H 147 H (60-110) mg/dL Calcium 6.5 L (8.5-10.1) mg/dL Phosphorus 1.8 L (2.6-4.7) mg/dL Magnesium 2.3 (1.8-2.4) mg/dL Total Bilirubin (0.2-1.0) mg/dL AST (15-37) IU/L ALT (14-63) IU/L Alkaline Phosphatase (46-116) U/L Creatine Kinase (26-308) U/L Troponin I (0.000-0.056) ng/mL Total Protein (6.4-8.2) g/dL Albumin (3.4-5.0) g/dL Globulin (2.6-4.0) g/dL Albumin/Globulin Ratio (0.9-1.6) Triglycerides (0-200) mg/dL Lipase (73-393) U/L Urine Color Urine Appearance Urine pH (5.0-8.0) Ur Specific Goessel (1.001-1.035) Urine Protein (NEGATIVE) mg/dL Urine Glucose (UA) (NEGATIVE) mg/dL Urine Ketones (NEGATIVE) mg/dL Urine Occult Blood (NEGATIVE) Urine Nitrite (NEGATIVE) Urine Bilirubin (NEGATIVE) Urine Urobilinogen (<2.0) EU/dL Ur Leukocyte Esterase (NEGATIVE) Urine RBC (0-2/HPF) Urine WBC (0-5/HPF) Ur Epithelial Cells (NONE-FEW) Urine Bacteria (NEGATIVE) Ketones (NEG) 09/12/19 09/12/19 Range/Units 09:38 10:25 WBC (4.0-11.0) K/uL RBC (4.30-5.90) M/uL Hgb (12.0-16.0) g/dL Hct (36.0-46.0) % MCV (80.0-98.0) fL MCH (27.0-32.0) pg MCHC (31.0-37.0) g/dL RDW Std Deviation (28.0-62.0) fl RDW Coeff of Mary (11.0-15.0) % Plt Count (150-400) K/uL MPV (7.40-12.00) fL Neut % (Auto) (48.0-80.0) % Lymph % (Auto) (16.0-40.0) % [place] % (Auto) (0.0-15.0) % Eos % (Auto) (0.0-7.0) % Baso % (Auto) (0.0-1.5) % Neut # (Auto) (1.4-5.7) K/uL Lymph # (Auto) (0.6-2.4) K/uL [place] # (Auto) (0.0-0.8) K/uL Eos # (Auto) (0.0-0.7) K/uL Baso # (Auto) (0.0-0.1) K/uL Nucleated RBC % /100WBC Nucleated RBCs # K/uL INR ABG pH (7.35-7.45) ABG pCO2 (35-45) mmHG ABG pO2 (75-100) mmHG ABG HCO3 (22-26) mEq/L ABG Total CO2 ABG Base Excess (-2.0-2.0) Ionized Calcium (4.6-5.1) mg/dL Lactate (0.20-2.00) mmol/L Sodium (136-145) mmol/L Potassium (3.5-5.1) mmol/L Chloride (98-107) mmol/L Carbon Dioxide (21.0-32.0) mmol/L BUN (7.0-18.0) mg/dL Creatinine (0.6-1.0) mg/dL Est Cr Clr Drug Dosing mL/min Estimated GFR (MDRD) ml/min Glucose (74-106) mg/dL POC Glucose 164 H 134 H (60-110) mg/dL Calcium (8.5-10.1) mg/dL Phosphorus (2.6-4.7) mg/dL Magnesium (1.8-2.4) mg/dL Total Bilirubin (0.2-1.0) mg/dL AST (15-37) IU/L ALT (14-63) IU/L Alkaline Phosphatase (46-116) U/L Creatine Kinase (26-308) U/L Troponin I (0.000-0.056) ng/mL Total Protein (6.4-8.2) g/dL Albumin (3.4-5.0) g/dL Globulin (2.6-4.0) g/dL Albumin/Globulin Ratio (0.9-1.6) Triglycerides (0-200) mg/dL Lipase (73-393) U/L Urine Color Urine Appearance Urine pH (5.0-8.0) Ur Specific Goessel (1.001-1.035) Urine Protein (NEGATIVE) mg/dL Urine Glucose (UA) (NEGATIVE) mg/dL Urine Ketones (NEGATIVE) mg/dL Urine Occult Blood (NEGATIVE) Urine Nitrite (NEGATIVE) Urine Bilirubin (NEGATIVE) Urine Urobilinogen (<2.0) EU/dL Ur Leukocyte Esterase (NEGATIVE) Urine RBC (0-2/HPF) Urine WBC (0-5/HPF) Ur Epithelial Cells (NONE-FEW) Urine Bacteria (NEGATIVE) Ketones (NEG) Renato Results Last 24 Hours: Microbiology 09/11/19 17:25 Influenza Type A Antigen Screen - Final Nasopharyngeal Swab NEGATIVE INFLUENZA A VIRUS AG REFERENCE RANGE: NEGATIVE Influenza Type B Antigen Screen - Final NEGATIVE INFLUENZA B VIRUS AG REFERENCE RANGE: NEGATIVE Med Orders - Current: Current Medications Enoxaparin Sodium (Lovenox) 40 mg SUBCUT Q24H PARAM Last Admin: 09/11/19 20:20 Dose: 40 mg Sodium Chloride (Normal Saline) 1,000 mls @ 999 mls/hr IV BOLUS PARAM Stop: 09/12/19 19:46 Last Admin: 09/11/19 22:24 Dose: 999 mls/hr Insulin Human Regular 100 unit (/ Sodium Chloride) 100 mls @ 2 mls/hr IV TITRATE PARAM; Protocol Last Titration: 09/12/19 10:32 Dose: 1 units/hr, 1 mls/hr Dextrose/Sodium Chloride (Dextrose 5%-Normal Saline) 1,000 mls @ 200 mls/hr IV ASDIRECTED PARAM Last Admin: 09/12/19 11:38 Dose: 200 mls/hr Potassium Chloride 40 meq/ (Premix) 100 mls @ 25 mls/hr IV ONETIME ONE Stop: 09/12/19 13:19 Last Admin: 09/12/19 09:42 Dose: 25 mls/hr Potassium Phosphate 20 mmole/ (Sodium Chloride) 256.6667 mls @ 60 mls/hr IV ONETIME ONE Stop: 09/12/19 13:59 Pantoprazole Sodium 40 mg/ (Sodium Chloride) 10 mls @ 300 mls/hr IV DAILY@0700 PARAM Last Admin: 09/12/19 10:10 Dose: 300 mls/hr Sodium Phosphate 20 mmole/ (Sodium Chloride) 256.6667 mls @ 64.167 mls/hr IV ONETIME ONE Stop: 09/12/19 15:44 Ondansetron HCl (Zofran) 4 mg IVPUSH Q4H PRN PRN Reason: Nausea/Vomiting Last Admin: 09/12/19 05:44 Dose: 4 mg Discontinued Medications Calcium Gluconate (Calcium Gluconate) 1 gm IV ONETIME ONE Stop: 09/12/19 01:30 Last Admin: 09/12/19 03:08 Dose: Not Given Famotidine (Pepcid) 20 mg IVPUSH ONETIME ONE Stop: 09/12/19 05:20 Last Admin: 09/12/19 05:48 Dose: 20 mg Sodium Chloride (Normal Saline) 1,000 mls @ 999 mls/hr IV BOLUS ONE Stop: 09/11/19 16:57 Last Admin: 09/11/19 16:18 Dose: 999 mls/hr Sodium Chloride (Normal Saline) 1,000 mls @ 999 mls/hr IV .Bolus ONE Stop: 09/11/19 18:53 Last Admin: 09/11/19 17:56 Dose: 999 mls/hr Insulin Human Regular 100 unit (/ Sodium Chloride) 100 mls @ 4.03 mls/hr IV TITRATE PARAM; Protocol Pantoprazole Sodium 40 mg/ (Sodium Chloride) 10 mls @ 300 mls/hr IV Q24H [facility] Last Admin: 09/11/19 20:18 Dose: 300 mls/hr Thiamine HCl 100 mg/ Sodium (Chloride) 101 mls @ 202 mls/hr IV ONETIME ONE Stop: 09/11/19 19:29 Last Admin: 09/11/19 21:12 Dose: 202 mls/hr Potassium Phosphate 30 mmole/ (Sodium Chloride) 510 mls @ 115.909 mls/hr IV NOW ONE Stop: 09/12/19 01:35 Last Admin: 09/11/19 23:37 Dose: 100 mls/hr Calcium Gluconate 1 gm/ Sodium (Chloride) 60 mls @ 60 mls/hr IV ONETIME ONE Stop: 09/12/19 02:44 Last Admin: 09/12/19 03:04 Dose: 60 mls/hr Magnesium Sulfate 2 gm/ Premix 50 mls @ 50 mls/hr IV ONETIME ONE Stop: 09/12/19 02:37 Last Admin: 09/12/19 01:59 Dose: 50 mls/hr Calcium Gluconate 1 gm/ Sodium (Chloride) 60 mls @ 60 mls/hr IV ONETIME ONE Stop: 09/12/19 06:14 Last Admin: 09/12/19 05:38 Dose: 60 mls/hr Sodium Chloride (Normal Saline) 1,000 mls @ 999 mls/hr IV ASDIRECTED [facility] Stop: 09/12/19 11:01 Last Admin: 09/12/19 10:38 Dose: 999 mls/hr Insulin Human Regular (Novolin R) 15 unit SUBCUT ASDIRECTED [facility]; Protocol Last Admin: 09/11/19 18:18 Dose: 15 units Ondansetron HCl (Zofran) 4 mg IVPUSH ONETIME ONE Stop: 09/11/19 15:58 Last Admin: 09/11/19 17:32 Dose: Not Given Potassium Chloride (Klor-Con M20) 40 meq PO ONETIME ONE Stop: 09/12/19 01:39 Last Admin: 09/12/19 01:53 Dose: 40 meq Sodium Bicarbonate (Sodium Bicarbonate 8.4%) 50 meq IVPUSH ONETIME ONE Stop: 09/11/19 18:05 Last Admin: 09/11/19 18:38 Dose: 50 meq Sodium Bicarbonate (Sodium Bicarbonate 8.4%) 50 meq IVPUSH ONETIME ONE Stop: 09/11/19 18:06 Last Admin: 09/11/19 18:39 Dose: 50 meq Sodium Phosphate (Neutra-Phos) 250 mg PO ONETIME ONE Stop: 09/12/19 01:42 Last Admin: 09/12/19 01:53 Dose: 250 mg - Exam General: Alert, Oriented, Cooperative, No Acute Distress, Other (very thin lady) Lungs: Clear to Auscultation, Normal Respiratory Effort Cardiovascular: Regular Rate, Tachycardia GI/Abdominal Exam: Soft, Non-Tender, No Distention Extremities: Normal Inspection, No Pedal Edema Skin: Warm, Dry - Problem List Review Problem List Initiated/Reviewed/Updated: Yes - My Orders Last 24 Hours: My Active Orders 09/11/19 18:44 Up With Assistance [RC] ASDIRECTED Resuscitation Status Routine 09/11/19 18:45 Cardiac Monitoring [RC] CONTINUOUS Intake and Output [RC] Q12H Oxygen Therapy [RC] PRN VTE/DVT Education [RC] PER UNIT ROUTINE Vital Signs [RC] Q1H Enoxaparin [Lovenox] 40 mg SUBCUT Q24H Sodium Chloride 0.9% [Normal Saline] 1,000 ml IV BOLUS 09/11/19 19:30 Insulin Regular, Human [NovoLIN R] 100 unit Sodium Chloride 0.9% [Normal Saline] 99 ml IV TITRATE 09/11/19 19:45 Dextrose 5%-0.9% NaCl [Dextrose 5%-Normal Saline] 1,000 ml IV ASDIRECTED 09/12/19 09:16 Consult to [employer]er And Presser [Consult to Diabetic Nurse Specialist] [CONS] Routine 09/12/19 09:20 Potassium Chloride Riders [KCL 40 MEQ in Water 100 ML] 40 meq Premix Bag 1 bag IV ONETIME 09/12/19 11:45 Sodium Chloride 0.9% [Normal Saline] 1,000 ml IV ASDIRECTED 09/12/19 12:00 BASIC METABOLIC PANEL,BMP [CHEM] Q4H MAGNESIUM [CHEM] Q4H PHOSPHORUS [CHEM] Q4H - Plan Plan:: A: 1. Diabetic ketoacidosis 2. Hypotension 3. Hypopotassemia 4. Hypophosphatemia 5. Severe protein calorie malnutrition P: Continue on insulin drip for now. Will bolus 1 L NS due to hypotension. Replace K and phosphorus. Recheck BMP Q4H and electrolytes. Will get repeat ABG. Dispo: 1-2 days. <Gale Grayson - Last Filed: 09/13/19 09:41> - Patient Data Vitals - Most Recent: Last Vital Signs Temp 36.7 C 09/13/19 08:00 Pulse 87 09/12/19 08:00 Resp 18 09/13/19 09:00 BP 126/69 09/13/19 09:00 Pulse Ox 98 09/13/19 09:00 I&O - Last 24 Hours: Intake & Output 09/12/19 09/13/19 09/13/19 22:59 06:59 14:59 Intake Total 6012 2410 Output Total 6150 2400 800 Balance -138 10 -800 Lab Results Last 24 Hours: Laboratory Results - last 24 hr 09/12/19 09/12/19 09/12/19 Range/Units 07:32 08:39 09:38 ABG pH (7.35-7.45) ABG pCO2 (35-45) mmHG ABG pO2 (75-100) mmHG ABG HCO3 (22-26) mEq/L ABG Total CO2 ABG Base Excess (-2.0-2.0) Sodium (136-145) mmol/L Potassium (3.5-5.1) mmol/L Chloride (98-107) mmol/L Carbon Dioxide (21.0-32.0) mmol/L BUN (7.0-18.0) mg/dL Creatinine (0.6-1.0) mg/dL Est Cr Clr Drug Dosing mL/min Estimated GFR (MDRD) ml/min Glucose (74-106) mg/dL POC Glucose 149 H 147 H 164 H (60-110) mg/dL Calcium (8.5-10.1) mg/dL Phosphorus (2.6-4.7) mg/dL Magnesium (1.8-2.4) mg/dL Albumin (3.4-5.0) g/dL TSH 3rd Generation (0.36-3.74) uIU/mL 09/12/19 09/12/19 09/12/19 Range/Units 10:25 11:27 11:50 ABG pH 7.364 (7.35-7.45) ABG pCO2 32 L (35-45) mmHG ABG pO2 76 (75-100) mmHG ABG HCO3 18 L (22-26) mEq/L ABG Total CO2 16.9 ABG Base Excess -6.3 L (-2.0-2.0) Sodium (136-145) mmol/L Potassium (3.5-5.1) mmol/L Chloride (98-107) mmol/L Carbon Dioxide (21.0-32.0) mmol/L BUN (7.0-18.0) mg/dL Creatinine (0.6-1.0) mg/dL Est Cr Clr Drug Dosing mL/min Estimated GFR (MDRD) ml/min Glucose (74-106) mg/dL POC Glucose 134 H 125 H (60-110) mg/dL Calcium (8.5-10.1) mg/dL Phosphorus (2.6-4.7) mg/dL Magnesium (1.8-2.4) mg/dL Albumin (3.4-5.0) g/dL TSH 3rd Generation (0.36-3.74) uIU/mL 09/12/19 09/12/19 09/12/19 Range/Units 12:42 13:15 13:27 ABG pH (7.35-7.45) ABG pCO2 (35-45) mmHG ABG pO2 (75-100) mmHG ABG HCO3 (22-26) mEq/L ABG Total CO2 ABG Base Excess (-2.0-2.0) Sodium 141 (136-145) mmol/L Potassium 3.2 L (3.5-5.1) mmol/L Chloride 112 H (98-107) mmol/L Carbon Dioxide 18.9 L (21.0-32.0) mmol/L BUN 5 L (7.0-18.0) mg/dL Creatinine 0.6 (0.6-1.0) mg/dL Est Cr Clr Drug Dosing 68.31 mL/min Estimated GFR (MDRD) > 60.0 ml/min Glucose 137 H (74-106) mg/dL POC Glucose 130 H 126 H (60-110) mg/dL Calcium 6.3 L (8.5-10.1) mg/dL Phosphorus 1.2 L (2.6-4.7) mg/dL Magnesium 1.8 (1.8-2.4) mg/dL Albumin 2.6 L (3.4-5.0) g/dL TSH 3rd Generation (0.36-3.74) uIU/mL 09/12/19 09/12/19 09/12/19 Range/Units 14:24 15:35 16:14 ABG pH (7.35-7.45) ABG pCO2 (35-45) mmHG ABG pO2 (75-100) mmHG ABG HCO3 (22-26) mEq/L ABG Total CO2 ABG Base Excess (-2.0-2.0) Sodium (136-145) mmol/L Potassium (3.5-5.1) mmol/L Chloride (98-107) mmol/L Carbon Dioxide (21.0-32.0) mmol/L BUN (7.0-18.0) mg/dL Creatinine (0.6-1.0) mg/dL Est Cr Clr Drug Dosing mL/min Estimated GFR (MDRD) ml/min Glucose (74-106) mg/dL POC Glucose 123 H 143 H 140 H (60-110) mg/dL Calcium (8.5-10.1) mg/dL Phosphorus (2.6-4.7) mg/dL Magnesium (1.8-2.4) mg/dL Albumin (3.4-5.0) g/dL TSH 3rd Generation (0.36-3.74) uIU/mL 09/12/19 09/12/19 09/12/19 Range/Units 16:15 17:06 17:58 ABG pH (7.35-7.45) ABG pCO2 (35-45) mmHG ABG pO2 (75-100) mmHG ABG HCO3 (22-26) mEq/L ABG Total CO2 ABG Base Excess (-2.0-2.0) Sodium 141 (136-145) mmol/L Potassium 3.6 (3.5-5.1) mmol/L Chloride 110 H (98-107) mmol/L Carbon Dioxide 18.6 L (21.0-32.0) mmol/L BUN 5 L (7.0-18.0) mg/dL Creatinine 0.6 (0.6-1.0) mg/dL Est Cr Clr Drug Dosing 68.31 mL/min Estimated GFR (MDRD) > 60.0 ml/min Glucose 133 H (74-106) mg/dL POC Glucose 227 H 244 H (60-110) mg/dL Calcium 6.6 L (8.5-10.1) mg/dL Phosphorus 2.1 L (2.6-4.7) mg/dL Magnesium 2.1 (1.8-2.4) mg/dL Albumin 2.9 L (3.4-5.0) g/dL TSH 3rd Generation (0.36-3.74) uIU/mL 09/12/19 09/12/19 09/13/19 Range/Units 19:55 19:56 01:56 ABG pH (7.35-7.45) ABG pCO2 (35-45) mmHG ABG pO2 (75-100) mmHG ABG HCO3 (22-26) mEq/L ABG Total CO2 ABG Base Excess (-2.0-2.0) Sodium 138 (136-145) mmol/L Potassium 2.9 L (3.5-5.1) mmol/L Chloride 107 (98-107) mmol/L Carbon Dioxide 23.2 (21.0-32.0) mmol/L BUN 5 L (7.0-18.0) mg/dL Creatinine 0.6 (0.6-1.0) mg/dL Est Cr Clr Drug Dosing 68.31 mL/min Estimated GFR (MDRD) > 60.0 ml/min Glucose 155 H (74-106) mg/dL POC Glucose 145 H 57 L (60-110) mg/dL Calcium 6.9 L (8.5-10.1) mg/dL Phosphorus 1.5 L (2.6-4.7) mg/dL Magnesium 2.1 (1.8-2.4) mg/dL Albumin 2.5 L (3.4-5.0) g/dL TSH 3rd Generation (0.36-3.74) uIU/mL 09/13/19 09/13/19 09/13/19 Range/Units 02:34 03:18 05:00 ABG pH (7.35-7.45) ABG pCO2 (35-45) mmHG ABG pO2 (75-100) mmHG ABG HCO3 (22-26) mEq/L ABG Total CO2 ABG Base Excess (-2.0-2.0) Sodium 140 (136-145) mmol/L Potassium 3.8 (3.5-5.1) mmol/L Chloride 107 (98-107) mmol/L Carbon Dioxide 29.2 (21.0-32.0) mmol/L BUN 7 (7.0-18.0) mg/dL Creatinine 0.4 L (0.6-1.0) mg/dL Est Cr Clr Drug Dosing 130.97 mL/min Estimated GFR (MDRD) > 60.0 ml/min Glucose 175 H (74-106) mg/dL POC Glucose 92 143 H (60-110) mg/dL Calcium 7.5 L (8.5-10.1) mg/dL Phosphorus 2.0 L (2.6-4.7) mg/dL Magnesium 1.9 (1.8-2.4) mg/dL Albumin 2.5 L (3.4-5.0) g/dL TSH 3rd Generation (0.36-3.74) uIU/mL 09/13/19 09/13/19 Range/Units 05:00 08:03 ABG pH (7.35-7.45) ABG pCO2 (35-45) mmHG ABG pO2 (75-100) mmHG ABG HCO3 (22-26) mEq/L ABG Total CO2 ABG Base Excess (-2.0-2.0) Sodium (136-145) mmol/L Potassium (3.5-5.1) mmol/L Chloride (98-107) mmol/L Carbon Dioxide (21.0-32.0) mmol/L BUN (7.0-18.0) mg/dL Creatinine (0.6-1.0) mg/dL Est Cr Clr Drug Dosing mL/min Estimated GFR (MDRD) ml/min Glucose (74-106) mg/dL POC Glucose 141 H (60-110) mg/dL Calcium (8.5-10.1) mg/dL Phosphorus (2.6-4.7) mg/dL Magnesium (1.8-2.4) mg/dL Albumin (3.4-5.0) g/dL TSH 3rd Generation 5.64 H (0.36-3.74) uIU/mL Renato Results Last 24 Hours: Microbiology 09/11/19 21:50 Urine Culture - Final Urine, Clean Catch Escherichia Coli Normal Urogenital Treasure Med Orders - Current: Current Medications Enoxaparin Sodium (Lovenox) 40 mg SUBCUT Q24H [facility] Last Admin: 09/12/19 18:12 Dose: 40 mg Dextrose/Sodium Chloride (Dextrose 5%-Normal Saline) 1,000 mls @ 200 mls/hr IV ASDIRECTED [facility] Last Admin: 09/12/19 11:38 Dose: 200 mls/hr Pantoprazole Sodium 40 mg/ (Sodium Chloride) 10 mls @ 300 mls/hr IV DAILY@0700 [facility] Last Admin: 09/13/19 06:46 Dose: 300 mls/hr Calcium Gluconate 2 gm/ Sodium (Chloride) 120 mls @ 60 mls/hr IV ONETIME [facility] Last Admin: 09/12/19 15:44 Dose: 60 mls/hr Insulin Aspart (Novolog) 0 unit SUBCUT Q6H [facility]; Protocol Last Admin: 09/13/19 08:12 Dose: Not Given Insulin Detemir (Levemir) 5 unit SUBCUT BEDTIME [facility] Last Admin: 09/12/19 20:02 Dose: 5 unit Ketorolac Tromethamine (Toradol) 15 mg IVPUSH Q6H PRN PRN Reason: Pain Last Admin: 09/12/19 13:21 Dose: 15 mg Ondansetron HCl (Zofran) 4 mg IVPUSH Q4H PRN PRN Reason: Nausea/Vomiting Last Admin: 09/12/19 05:44 Dose: 4 mg Sodium Phosphate (Neutra-Phos) 250 mg PO QID [facility] Last Admin: 09/13/19 05:00 Dose: 250 mg Discontinued Medications Calcium Carbonate/Glycine (Tums) 1,000 mg PO ONETIME ONE Stop: 09/12/19 19:51 Last Admin: 09/12/19 20:08 Dose: 1,000 mg Calcium Gluconate (Calcium Gluconate) 1 gm IV ONETIME ONE Stop: 09/12/19 01:30 Last Admin: 09/12/19 03:08 Dose: Not Given Calcium Gluconate (Calcium Gluconate) 2 gm IV NOW STA Stop: 09/12/19 14:50 Last Admin: 09/12/19 17:30 Dose: Not Given Famotidine (Pepcid) 20 mg IVPUSH ONETIME ONE Stop: 09/12/19 05:20 Last Admin: 09/12/19 05:48 Dose: 20 mg Sodium Chloride (Normal Saline) 1,000 mls @ 999 mls/hr IV BOLUS ONE Stop: 09/11/19 16:57 Last Admin: 09/11/19 16:18 Dose: 999 mls/hr Sodium Chloride (Normal Saline) 1,000 mls @ 999 mls/hr IV .Bolus ONE Stop: 09/11/19 18:53 Last Admin: 09/11/19 17:56 Dose: 999 mls/hr Sodium Chloride (Normal Saline) 1,000 mls @ 999 mls/hr IV BOLUS [facility] Stop: 09/12/19 19:46 Last Admin: 09/11/19 22:24 Dose: 999 mls/hr Insulin Human Regular 100 unit (/ Sodium Chloride) 100 mls @ 4.03 mls/hr IV TITRATE [facility]; Protocol Pantoprazole Sodium 40 mg/ (Sodium Chloride) 10 mls @ 300 mls/hr IV Q24H [facility] Last Admin: 09/11/19 20:18 Dose: 300 mls/hr Thiamine HCl 100 mg/ Sodium (Chloride) 101 mls @ 202 mls/hr IV ONETIME ONE Stop: 09/11/19 19:29 Last Admin: 09/11/19 21:12 Dose: 202 mls/hr Insulin Human Regular 100 unit (/ Sodium Chloride) 100 mls @ 2 mls/hr IV TITRATE [facility]; Protocol Last Titration: 09/12/19 17:17 Dose: 0 units/hr, 0 mls/hr Potassium Phosphate 30 mmole/ (Sodium Chloride) 510 mls @ 115.909 mls/hr IV NOW ONE Stop: 09/12/19 01:35 Last Admin: 09/11/19 23:37 Dose: 100 mls/hr Calcium Gluconate 1 gm/ Sodium (Chloride) 60 mls @ 60 mls/hr IV ONETIME ONE Stop: 09/12/19 02:44 Last Admin: 09/12/19 03:04 Dose: 60 mls/hr Magnesium Sulfate 2 gm/ Premix 50 mls @ 50 mls/hr IV ONETIME ONE Stop: 09/12/19 02:37 Last Admin: 09/12/19 01:59 Dose: 50 mls/hr Calcium Gluconate 1 gm/ Sodium (Chloride) 60 mls @ 60 mls/hr IV ONETIME ONE Stop: 09/12/19 06:14 Last Admin: 09/12/19 05:38 Dose: 60 mls/hr Potassium Chloride 40 meq/ (Premix) 100 mls @ 25 mls/hr IV ONETIME ONE Stop: 09/12/19 13:19 Last Admin: 09/12/19 09:42 Dose: 25 mls/hr Sodium Chloride (Normal Saline) 1,000 mls @ 999 mls/hr IV ASDIRECTED [facility] Stop: 09/12/19 11:01 Last Admin: 09/12/19 10:38 Dose: 999 mls/hr Sodium Phosphate 20 mmole/ (Sodium Chloride) 256.6667 mls @ 64.167 mls/hr IV ONETIME ONE Stop: 09/12/19 15:44 Last Admin: 09/12/19 12:21 Dose: 64.167 mls/hr Sodium Chloride (Normal Saline) 1,000 mls @ 999 mls/hr IV ASDIRECTED [facility] Stop: 09/12/19 12:46 Last Admin: 09/12/19 12:34 Dose: 999 mls/hr Magnesium Sulfate 2 gm/ Premix 50 mls @ 25 mls/hr IV ONETIME ONE Stop: 09/12/19 16:59 Last Admin: 09/12/19 15:16 Dose: 25 mls/hr Sodium Chloride (Normal Saline) 1,000 mls @ 999 mls/hr IV BOLUS ONE Stop: 09/12/19 19:18 Last Admin: 09/12/19 18:35 Dose: 999 mls/hr Insulin Aspart (Novolog) 0 unit SUBCUT TIDAC [facility]; Protocol Insulin Aspart (Novolog) 0 unit SUBCUT TIDAC [facility]; Protocol Last Admin: 09/12/19 18:11 Dose: 6 unit Insulin Aspart (Novolog) 0 unit SUBCUT Q4H [facility]; Protocol Insulin Aspart (Novolog) 0 unit SUBCUT QID [facility]; Protocol Insulin Detemir (Levemir) 10 unit SUBCUT ONETIME ONE Stop: 09/12/19 14:48 Last Admin: 09/12/19 16:03 Dose: 10 unit Insulin Human Regular (Novolin R) 15 unit SUBCUT ASDIRECTED [facility]; Protocol Last Admin: 09/11/19 18:18 Dose: 15 units Ondansetron HCl (Zofran) 4 mg IVPUSH ONETIME ONE Stop: 09/11/19 15:58 Last Admin: 09/11/19 17:32 Dose: Not Given Potassium Chloride (Klor-Con M20) 40 meq PO ONETIME ONE Stop: 09/12/19 01:39 Last Admin: 09/12/19 01:53 Dose: 40 meq Potassium Chloride (Potassium Chloride) 40 meq PO ONETIME ONE Stop: 09/12/19 13:59 Last Admin: 09/12/19 14:34 Dose: 40 meq Potassium Chloride (Klor-Con M20) 40 meq PO ONETIME ONE Stop: 09/12/19 22:04 Last Admin: 09/12/19 22:15 Dose: 40 meq Potassium Chloride (Klor-Con M20) 40 meq PO ONETIME ONE Stop: 09/12/19 23:56 Last Admin: 09/12/19 23:38 Dose: 40 meq Potassium Chloride (Klor-Con M20) Confirm Administered Dose 40 meq .ROUTE .STK- MED ONE Stop: 09/12/19 22:14 Last Admin: 09/12/19 22:27 Dose: Not Given Sodium Bicarbonate (Sodium Bicarbonate 8.4%) 50 meq IVPUSH ONETIME ONE Stop: 09/11/19 18:05 Last Admin: 09/11/19 18:38 Dose: 50 meq Sodium Bicarbonate (Sodium Bicarbonate 8.4%) 50 meq IVPUSH ONETIME ONE Stop: 09/11/19 18:06 Last Admin: 09/11/19 18:39 Dose: 50 meq Sodium Phosphate (Neutra-Phos) 250 mg PO ONETIME ONE Stop: 09/12/19 01:42 Last Admin: 09/12/19 01:53 Dose: 250 mg Sodium Phosphate (Neutra-Phos) 250 mg PO ONETIME ONE Stop: 09/12/19 14:58 Last Admin: 09/12/19 15:31 Dose: 250 mg - My Orders Last 24 Hours: My Active Orders 09/12/19 15:30 Calcium Gluconate 2 gm Sodium Chloride 0.9% [Normal Saline] 100 ml IV ONETIME - Plan Plan:: I have seen and evaluated the patient and agree with the residents note unless specified in my note
[2019-09-12] MEDS ORDERED: Ketorolac 30 MG/ML SDV IVPUSH PRN (13:15)
[2019-09-12 13:43] LABS: BLOOD UREA NITROGEN,BUN 5 mg/dL (7.0-18.0); CARBON DIOXIDE,CO2 18.9 mmol/L (21.0-32.0); CHLORIDE,CL 112 mmol/L (98-107); GLUCOSE RANDOM 137 mg/dL (74-106); POTASSIUM,K 3.2 mmol/L (3.5-5.1); SODIUM,NA 141 mmol/L (136-145)
[2019-09-12] MEDS ORDERED: Potassium Chloride 10% 20 MEQ/15 ML Soln 30 ML UD Cup PO ONE (13:58)
[2019-09-12] MEDS ORDERED: Insulin Detemir 100 Units/ML 3 ML Pen SUBCUT ONE (14:47)
[2019-09-12] MEDS ORDERED: Calcium Gluconate 10% 1 GM/10 ML SDV IV STA (14:49)
[2019-09-12] MEDS ORDERED: Calcium Gluconate 2 GM in Sodium Chloride 0.9% 100 ML IV SCH (15:30)
[2019-09-12 16:51] LABS: BLOOD UREA NITROGEN,BUN 5 mg/dL (7.0-18.0); CARBON DIOXIDE,CO2 18.6 mmol/L (21.0-32.0); CHLORIDE,CL 110 mmol/L (98-107); GLUCOSE RANDOM 133 mg/dL (74-106); POTASSIUM,K 3.6 mmol/L (3.5-5.1); SODIUM,NA 141 mmol/L (136-145)
[2019-09-12] MEDS ORDERED: Insulin Aspart 100 Units/ML 3 ML Pen SUBCUT SCH ×2 (18:03→22:00)
[2019-09-12] MEDS: Enoxaparin 40 MG/0.4 ML Syringe SUBCUT SCH (18:12)
[2019-09-12] MEDS ORDERED: Sodium Chloride 0.9% 1,000 ML IV ONE (18:18)
[2019-09-12] MEDS ORDERED: Calcium Carbonate 500 MG Tab.Chew PO ONE (19:50)
[2019-09-12] MEDS: Insulin Aspart 100 Units/ML 3 ML Pen SUBCUT SCH (20:05)
[2019-09-12 20:28] LABS: BLOOD UREA NITROGEN,BUN 5 mg/dL (7.0-18.0); CARBON DIOXIDE,CO2 23.2 mmol/L (21.0-32.0); CHLORIDE,CL 107 mmol/L (98-107); GLUCOSE RANDOM 155 mg/dL (74-106); POTASSIUM,K 2.9 mmol/L (3.5-5.1); SODIUM,NA 138 mmol/L (136-145)
[2019-09-12] MEDS ORDERED: Insulin Detemir 100 Units/ML 3 ML Pen SUBCUT SCH (21:00)
--- NOTE | 2019-09-12 22:11 | PN ---
THC Physician - Brief Progress [id number]/15/2019 22:05[facility] Jamaal hernandez, [place] - SHAUN (NICO) - Yehuda LOPEZ of Service 09/12/2019 22:05HPI/Events of Note K low at 2.8. now on Levemir and SSI. Cr normal. AG closed.Plan:- Kcl 40 meq oral x 2 doses , once now and 2nd dose at 23:55.- follow labs in AM.Interventions Minor-Electrolyte abnormality - ev aluation and management
[2019-09-12] MEDS ORDERED: Potassium Chloride 20 MEQ Tab.ER ONE (22:13)
[2019-09-12] MEDS: Phosphorus #1 250 MG Tab PO SCH (23:38)
[2019-09-13] MEDS: Insulin Aspart 100 Units/ML 3 ML Pen SUBCUT SCH ×2 (02:01→08:12)
--- NOTE | 2019-09-13 03:51 | PN ---
THC Physician - Brief Progress [id number]/16/2019 03:49[facility] Jamaal Hall, [place] - SHAUN (NICO) - SHAUN HOFFMANNROSELIATerry of Service 09/13/2019 03:49HPI/Events of Note As per patient latley loosing weight. weaker. wanted Thyroid cheked. out of DKA. on e epis ode on low Glucose as per bed side RN, got dextrose.- ordered TSH for 5 AM.Interventions Intermediate -Diagnostic test evaluationMinor-Communication with other healthcare providers and/or familyElectroni talib Signed by: ALYSSA MORTENSEN) on 09/13/2019 03:50
[2019-09-13] MEDS: Phosphorus #1 250 MG Tab PO SCH ×2 (05:00→12:11)
[2019-09-13 05:27] LABS: BLOOD UREA NITROGEN,BUN 7 mg/dL (7.0-18.0); CARBON DIOXIDE,CO2 29.2 mmol/L (21.0-32.0); CHLORIDE,CL 107 mmol/L (98-107); GLUCOSE RANDOM 175 mg/dL (74-106); POTASSIUM,K 3.8 mmol/L (3.5-5.1); SODIUM,NA 140 mmol/L (136-145)
[2019-09-13] MEDS: Pantoprazole 40 MG in Sodium Chloride 0.9% 10 ML IV SCH (06:46)
[2019-09-13] MEDS ORDERED: Insulin Aspart 100 Units/ML 3 ML Pen SUBCUT SCH ×2 (07:30)
--- NOTE | 2019-09-13 11:29 | PCM.DCSUM1 ---
<Tonio Lopez - Last Filed: 09/13/19 12:24> Discharge Summary - Hospital Course Free Text/Narrative:: 54 y/o female with history of type 2 diabetes who presented to the ER complaining of nausea, vomiting, generalized weakness. She was found to be hyperglycemic at 250. ABG showed ketoacidosis pH 7.0, Bicarb 5. She was admitted for DKA and started on insulin drip and D5NS. She received IV bicarb in the ER and she was aggressively hydrated with total of 8L NS. Her electrolytes were replaced as necessary. She was transitioned to SQ insulin on Levemir 10 units SQ. At time of discharge she was feeling better and tolerating PO intake. She was discharged home on Levemir 10 units SQ at night, Novolog 3 units TIDAC. In addition, she was prescribed neutra-phos and mag-ox to replace her electrolytes. She was advised to follow-up with her PCP for further diabetic management and recheck TSH since it was mildly elevated during her stay. - Discharge Data Discharge Date: 09/13/19 Discharge Disposition: Home, Self-Care 01 Condition: Stable - Referral to Home Health Primary Care Physician: Garrett Mckoy MD - Patient Summary/Data Consults: Consultations 09/12/19 09:16 Consult to [employer] [Consult to Diabetic Nurse Specialist] [CONS] Routine - Patient Instructions Diet: Diabetic Diet Diet, Other: Make sure you are eating through out the day. Fluid Restriction: 2000 mL Activity: As Tolerated, Rest and Relax Today Notify Provider of: Fever, Increased Pain, Nausea and/or Vomiting Other/Special Instructions: Recheck TSH in 1-2 weeks with your PCP. - Discharge Plan Prescriptions/Med Rec: Blood Sugar Diagnostic [Blood Glucose Test Strip] 1 each MC TID #1 pack Blood-Glucose Meter [Blood Glucose Meter] 1 each MC TID #1 each Container,Empty [Sharps Container] 1 each MC DAILY #1 each Insulin Aspart [NovoLOG] 3 unit SUBCUT TIDAC #1 pen Insulin Detemir [Levemir] 10 unit SUBCUT BEDTIME #1 pen Lancets [Fingerstix] 1 each MC TID #1 pack Pen Needle, Diabetic [Pen Sarver] 1 each MC TID #1 pack Home Medications: Home Meds levETIRAcetam [Keppra] 500 mg PO DAILY 02/20/17 [History] Blood Sugar Diagnostic [Blood Glucose Test Strip] 1 each MC TID #1 pack [Rx] Blood-Glucose Meter [Blood Glucose Meter] 1 each MC TID #1 each 09/13/19 [Rx] Container,Empty [Sharps Container] 1 each MC DAILY #1 each 09/13/19 [Rx] Insulin Aspart [NovoLOG] 3 unit SUBCUT TIDAC #1 pen 09/13/19 [Rx] Insulin Detemir [Levemir] 10 unit SUBCUT BEDTIME #1 pen 09/13/19 [Rx] Lancets [Fingerstix] 1 each MC TID #1 pack 09/13/19 [Rx] Pen Needle, Diabetic [Pen Sarver] 1 each MC TID #1 pack 09/13/19 [Rx] Ciprofloxacin [Cipro XR 500 MG Tablet] 500 mg PO DAILY #4 tab.er 09/14/19 [Rx] Patient Handouts: Insulin Aspart injection, Dehydration, Adult, [id number], Metabolic Acidosis, Correction Insulin, Insulin Detemir injection, Blood Glucose Monitoring, Adult Referrals: [facility] [Outside] Garrett Mckoy MD [Primary Care Provider] - - Discharge Summary/Plan Comment DC Time >30 min.: No - Patient Data Vitals - Most Recent: Last Vital Signs Temp 36.7 C 09/13/19 08:00 Pulse 87 09/12/19 08:00 Resp 16 09/13/19 10:00 BP 114/71 09/13/19 10:00 Pulse Ox 95 09/13/19 10:00 Weight - Most Recent: 51.6 kg I&O - Last 24 hours: Intake & Output 09/12/19 09/13/19 09/13/19 22:59 06:59 14:59 Intake Total 6012 2410 Output Total 6150 2400 800 Balance -138 10 -800 Lab Results - Last 24 hrs: Laboratory Results - last 24 hr 09/12/19 09/12/19 09/12/19 Range/Units 11:27 11:50 12:42 ABG pH 7.364 (7.35-7.45) ABG pCO2 32 L (35-45) mmHG ABG pO2 76 (75-100) mmHG ABG HCO3 18 L (22-26) mEq/L ABG Total CO2 16.9 ABG Base Excess -6.3 L (-2.0-2.0) Sodium (136-145) mmol/L Potassium (3.5-5.1) mmol/L Chloride (98-107) mmol/L Carbon Dioxide (21.0-32.0) mmol/L BUN (7.0-18.0) mg/dL Creatinine (0.6-1.0) mg/dL Est Cr Clr Drug Dosing mL/min Estimated GFR (MDRD) ml/min Glucose (74-106) mg/dL POC Glucose 125 H 130 H (60-110) mg/dL Calcium (8.5-10.1) mg/dL Phosphorus (2.6-4.7) mg/dL Magnesium (1.8-2.4) mg/dL Albumin (3.4-5.0) g/dL TSH 3rd Generation (0.36-3.74) uIU/mL 09/12/19 09/12/19 09/12/19 Range/Units 13:15 13:27 14:24 ABG pH (7.35-7.45) ABG pCO2 (35-45) mmHG ABG pO2 (75-100) mmHG ABG HCO3 (22-26) mEq/L ABG Total CO2 ABG Base Excess (-2.0-2.0) Sodium 141 (136-145) mmol/L Potassium 3.2 L (3.5-5.1) mmol/L Chloride 112 H (98-107) mmol/L Carbon Dioxide 18.9 L (21.0-32.0) mmol/L BUN 5 L (7.0-18.0) mg/dL Creatinine 0.6 (0.6-1.0) mg/dL Est Cr Clr Drug Dosing 68.31 mL/min Estimated GFR (MDRD) > 60.0 ml/min Glucose 137 H (74-106) mg/dL POC Glucose 126 H 123 H (60-110) mg/dL Calcium 6.3 L (8.5-10.1) mg/dL Phosphorus 1.2 L (2.6-4.7) mg/dL Magnesium 1.8 (1.8-2.4) mg/dL Albumin 2.6 L (3.4-5.0) g/dL TSH 3rd Generation (0.36-3.74) uIU/mL 09/12/19 09/12/19 09/12/19 Range/Units 15:35 16:14 16:15 ABG pH (7.35-7.45) ABG pCO2 (35-45) mmHG ABG pO2 (75-100) mmHG ABG HCO3 (22-26) mEq/L ABG Total CO2 ABG Base Excess (-2.0-2.0) Sodium 141 (136-145) mmol/L Potassium 3.6 (3.5-5.1) mmol/L Chloride 110 H (98-107) mmol/L Carbon Dioxide 18.6 L (21.0-32.0) mmol/L BUN 5 L (7.0-18.0) mg/dL Creatinine 0.6 (0.6-1.0) mg/dL Est Cr Clr Drug Dosing 68.31 mL/min Estimated GFR (MDRD) > 60.0 ml/min Glucose 133 H (74-106) mg/dL POC Glucose 143 H 140 H (60-110) mg/dL Calcium 6.6 L (8.5-10.1) mg/dL Phosphorus 2.1 L (2.6-4.7) mg/dL Magnesium 2.1 (1.8-2.4) mg/dL Albumin 2.9 L (3.4-5.0) g/dL TSH 3rd Generation (0.36-3.74) uIU/mL 09/12/19 09/12/19 09/12/19 Range/Units 17:06 17:58 19:55 ABG pH (7.35-7.45) ABG pCO2 (35-45) mmHG ABG pO2 (75-100) mmHG ABG HCO3 (22-26) mEq/L ABG Total CO2 ABG Base Excess (-2.0-2.0) Sodium 138 (136-145) mmol/L Potassium 2.9 L (3.5-5.1) mmol/L Chloride 107 (98-107) mmol/L Carbon Dioxide 23.2 (21.0-32.0) mmol/L BUN 5 L (7.0-18.0) mg/dL Creatinine 0.6 (0.6-1.0) mg/dL Est Cr Clr Drug Dosing 68.31 mL/min Estimated GFR (MDRD) > 60.0 ml/min Glucose 155 H (74-106) mg/dL POC Glucose 227 H 244 H (60-110) mg/dL Calcium 6.9 L (8.5-10.1) mg/dL Phosphorus 1.5 L (2.6-4.7) mg/dL Magnesium 2.1 (1.8-2.4) mg/dL Albumin 2.5 L (3.4-5.0) g/dL TSH 3rd Generation (0.36-3.74) uIU/mL 09/12/19 09/13/19 09/13/19 Range/Units 19:56 01:56 02:34 ABG pH (7.35-7.45) ABG pCO2 (35-45) mmHG ABG pO2 (75-100) mmHG ABG HCO3 (22-26) mEq/L ABG Total CO2 ABG Base Excess (-2.0-2.0) Sodium (136-145) mmol/L Potassium (3.5-5.1) mmol/L Chloride (98-107) mmol/L Carbon Dioxide (21.0-32.0) mmol/L BUN (7.0-18.0) mg/dL Creatinine (0.6-1.0) mg/dL Est Cr Clr Drug Dosing mL/min Estimated GFR (MDRD) ml/min Glucose (74-106) mg/dL POC Glucose 145 H 57 L 92 (60-110) mg/dL Calcium (8.5-10.1) mg/dL Phosphorus (2.6-4.7) mg/dL Magnesium (1.8-2.4) mg/dL Albumin (3.4-5.0) g/dL TSH 3rd Generation (0.36-3.74) uIU/mL 09/13/19 09/13/19 09/13/19 Range/Units 03:18 05:00 05:00 ABG pH (7.35-7.45) ABG pCO2 (35-45) mmHG ABG pO2 (75-100) mmHG ABG HCO3 (22-26) mEq/L ABG Total CO2 ABG Base Excess (-2.0-2.0) Sodium 140 (136-145) mmol/L Potassium 3.8 (3.5-5.1) mmol/L Chloride 107 (98-107) mmol/L Carbon Dioxide 29.2 (21.0-32.0) mmol/L BUN 7 (7.0-18.0) mg/dL Creatinine 0.4 L (0.6-1.0) mg/dL Est Cr Clr Drug Dosing 130.97 mL/min Estimated GFR (MDRD) > 60.0 ml/min Glucose 175 H (74-106) mg/dL POC Glucose 143 H (60-110) mg/dL Calcium 7.5 L (8.5-10.1) mg/dL Phosphorus 2.0 L (2.6-4.7) mg/dL Magnesium 1.9 (1.8-2.4) mg/dL Albumin 2.5 L (3.4-5.0) g/dL TSH 3rd Generation 5.64 H (0.36-3.74) uIU/mL 09/13/19 Range/Units 08:03 ABG pH (7.35-7.45) ABG pCO2 (35-45) mmHG ABG pO2 (75-100) mmHG ABG HCO3 (22-26) mEq/L ABG Total CO2 ABG Base Excess (-2.0-2.0) Sodium (136-145) mmol/L Potassium (3.5-5.1) mmol/L Chloride (98-107) mmol/L Carbon Dioxide (21.0-32.0) mmol/L BUN (7.0-18.0) mg/dL Creatinine (0.6-1.0) mg/dL Est Cr Clr Drug Dosing mL/min Estimated GFR (MDRD) ml/min Glucose (74-106) mg/dL POC Glucose 141 H (60-110) mg/dL Calcium (8.5-10.1) mg/dL Phosphorus (2.6-4.7) mg/dL Magnesium (1.8-2.4) mg/dL Albumin (3.4-5.0) g/dL TSH 3rd Generation (0.36-3.74) uIU/mL MADELINE Results - Last 24 hrs: Microbiology 09/11/19 21:50 Urine Culture - Final Urine, Clean Catch Escherichia Coli Normal Urogenital [place] Med Orders - Current: Current Medications Enoxaparin Sodium (Lovenox) 40 mg SUBCUT Q24H PARAM Last Admin: 09/12/19 18:12 Dose: 40 mg Dextrose/Sodium Chloride (Dextrose 5%-Normal Saline) 1,000 mls @ 200 mls/hr IV ASDIRECTED [facility] Last Admin: 09/12/19 11:38 Dose: 200 mls/hr Pantoprazole Sodium 40 mg/ (Sodium Chloride) 10 mls @ 300 mls/hr IV DAILY@0700 [facility] Last Admin: 09/13/19 06:46 Dose: 300 mls/hr Calcium Gluconate 2 gm/ Sodium (Chloride) 120 mls @ 60 mls/hr IV ONETIME [facility] Last Admin: 09/12/19 15:44 Dose: 60 mls/hr Insulin Aspart (Novolog) 0 unit SUBCUT Q6H [facility]; Protocol Last Admin: 09/13/19 08:12 Dose: Not Given Insulin Detemir (Levemir) 5 unit SUBCUT BEDTIME [facility] Last Admin: 09/12/19 20:02 Dose: 5 unit Ketorolac Tromethamine (Toradol) 15 mg IVPUSH Q6H PRN PRN Reason: Pain Last Admin: 09/12/19 13:21 Dose: 15 mg Ondansetron HCl (Zofran) 4 mg IVPUSH Q4H PRN PRN Reason: Nausea/Vomiting Last Admin: 09/12/19 05:44 Dose: 4 mg Sodium Phosphate (Neutra-Phos) 250 mg PO QID [facility] Last Admin: 09/13/19 05:00 Dose: 250 mg Discontinued Medications Calcium Carbonate/Glycine (Tums) 1,000 mg PO ONETIME ONE Stop: 09/12/19 19:51 Last Admin: 09/12/19 20:08 Dose: 1,000 mg Calcium Gluconate (Calcium Gluconate) 1 gm IV ONETIME ONE Stop: 09/12/19 01:30 Last Admin: 09/12/19 03:08 Dose: Not Given Calcium Gluconate (Calcium Gluconate) 2 gm IV NOW STA Stop: 09/12/19 14:50 Last Admin: 09/12/19 17:30 Dose: Not Given Famotidine (Pepcid) 20 mg IVPUSH ONETIME ONE Stop: 09/12/19 05:20 Last Admin: 09/12/19 05:48 Dose: 20 mg Sodium Chloride (Normal Saline) 1,000 mls @ 999 mls/hr IV BOLUS ONE Stop: 09/11/19 16:57 Last Admin: 09/11/19 16:18 Dose: 999 mls/hr Sodium Chloride (Normal Saline) 1,000 mls @ 999 mls/hr IV .Bolus ONE Stop: 09/11/19 18:53 Last Admin: 09/11/19 17:56 Dose: 999 mls/hr Sodium Chloride (Normal Saline) 1,000 mls @ 999 mls/hr IV BOLUS PARAM Stop: 09/12/19 19:46 Last Admin: 09/11/19 22:24 Dose: 999 mls/hr Insulin Human Regular 100 unit (/ Sodium Chloride) 100 mls @ 4.03 mls/hr IV TITRATE PAR[facility]; Protocol Pantoprazole Sodium 40 mg/ (Sodium Chloride) 10 mls @ 300 mls/hr IV Q24H PARAM Last Admin: 09/11/19 20:18 Dose: 300 mls/hr Thiamine HCl 100 mg/ Sodium (Chloride) 101 mls @ 202 mls/hr IV ONETIME ONE Stop: 09/11/19 19:29 Last Admin: 09/11/19 21:12 Dose: 202 mls/hr Insulin Human Regular 100 unit (/ Sodium Chloride) 100 mls @ 2 mls/hr IV TITRATE PAR[facility]; Protocol Last Titration: 09/12/19 17:17 Dose: 0 units/hr, 0 mls/hr Potassium Phosphate 30 mmole/ (Sodium Chloride) 510 mls @ 115.909 mls/hr IV NOW ONE Stop: 09/12/19 01:35 Last Admin: 09/11/19 23:37 Dose: 100 mls/hr Calcium Gluconate 1 gm/ Sodium (Chloride) 60 mls @ 60 mls/hr IV ONETIME ONE Stop: 09/12/19 02:44 Last Admin: 09/12/19 03:04 Dose: 60 mls/hr Magnesium Sulfate 2 gm/ Premix 50 mls @ 50 mls/hr IV ONETIME ONE Stop: 09/12/19 02:37 Last Admin: 09/12/19 01:59 Dose: 50 mls/hr Calcium Gluconate 1 gm/ Sodium (Chloride) 60 mls @ 60 mls/hr IV ONETIME ONE Stop: 09/12/19 06:14 Last Admin: 09/12/19 05:38 Dose: 60 mls/hr Potassium Chloride 40 meq/ (Premix) 100 mls @ 25 mls/hr IV ONETIME ONE Stop: 09/12/19 13:19 Last Admin: 09/12/19 09:42 Dose: 25 mls/hr Sodium Chloride (Normal Saline) 1,000 mls @ 999 mls/hr IV ASDIRECTED [facility] Stop: 09/12/19 11:01 Last Admin: 09/12/19 10:38 Dose: 999 mls/hr Sodium Phosphate 20 mmole/ (Sodium Chloride) 256.6667 mls @ 64.167 mls/hr IV ONETIME ONE Stop: 09/12/19 15:44 Last Admin: 09/12/19 12:21 Dose: 64.167 mls/hr Sodium Chloride (Normal Saline) 1,000 mls @ 999 mls/hr IV ASDIRECTED [facility] Stop: 09/12/19 12:46 Last Admin: 09/12/19 12:34 Dose: 999 mls/hr Magnesium Sulfate 2 gm/ Premix 50 mls @ 25 mls/hr IV ONETIME ONE Stop: 09/12/19 16:59 Last Admin: 09/12/19 15:16 Dose: 25 mls/hr Sodium Chloride (Normal Saline) 1,000 mls @ 999 mls/hr IV BOLUS ONE Stop: 09/12/19 19:18 Last Admin: 09/12/19 18:35 Dose: 999 mls/hr Insulin Aspart (Novolog) 0 unit SUBCUT TIDAC [facility]; Protocol Insulin Aspart (Novolog) 0 unit SUBCUT TIDAC [facility]; Protocol Last Admin: 09/12/19 18:11 Dose: 6 unit Insulin Aspart (Novolog) 0 unit SUBCUT Q4H [facility]; Protocol Insulin Aspart (Novolog) 0 unit SUBCUT QID [facility]; Protocol Insulin Detemir (Levemir) 10 unit SUBCUT ONETIME ONE Stop: 09/12/19 14:48 Last Admin: 09/12/19 16:03 Dose: 10 unit Insulin Human Regular (Novolin R) 15 unit SUBCUT ASDIRECTED [facility]; Protocol Last Admin: 09/11/19 18:18 Dose: 15 units Ondansetron HCl (Zofran) 4 mg IVPUSH ONETIME ONE Stop: 09/11/19 15:58 Last Admin: 09/11/19 17:32 Dose: Not Given Potassium Chloride (Klor-Con M20) 40 meq PO ONETIME ONE Stop: 09/12/19 01:39 Last Admin: 09/12/19 01:53 Dose: 40 meq Potassium Chloride (Potassium Chloride) 40 meq PO ONETIME ONE Stop: 09/12/19 13:59 Last Admin: 09/12/19 14:34 Dose: 40 meq Potassium Chloride (Klor-Con M20) 40 meq PO ONETIME ONE Stop: 09/12/19 22:04 Last Admin: 09/12/19 22:15 Dose: 40 meq Potassium Chloride (Klor-Con M20) 40 meq PO ONETIME ONE Stop: 09/12/19 23:56 Last Admin: 09/12/19 23:38 Dose: 40 meq Potassium Chloride (Klor-Con M20) Confirm Administered Dose 40 meq .ROUTE .STK- MED ONE Stop: 09/12/19 22:14 Last Admin: 09/12/19 22:27 Dose: Not Given Sodium Bicarbonate (Sodium Bicarbonate 8.4%) 50 meq IVPUSH ONETIME ONE Stop: 09/11/19 18:05 Last Admin: 09/11/19 18:38 Dose: 50 meq Sodium Bicarbonate (Sodium Bicarbonate 8.4%) 50 meq IVPUSH ONETIME ONE Stop: 09/11/19 18:06 Last Admin: 09/11/19 18:39 Dose: 50 meq Sodium Phosphate (Neutra-Phos) 250 mg PO ONETIME ONE Stop: 09/12/19 01:42 Last Admin: 09/12/19 01:53 Dose: 250 mg Sodium Phosphate (Neutra-Phos) 250 mg PO ONETIME ONE Stop: 09/12/19 14:58 Last Admin: 09/12/19 15:31 Dose: 250 mg <Gale Grayson - Last Filed: 09/15/19 19:30> Discharge Summary - Hospital Course HPI Initial Comments: I have seen and evaluated the patient and agree with the residents note unless specified in my note - Referral to Home Health Primary Care Physician: Garrett Mckoy MD - Patient Summary/Data Consults: Consultations 09/12/19 09:16 Consult to [employer] [Consult to Diabetic Nurse Specialist] [CONS] Routine - Patient Data Vitals - Most Recent: Last Vital Signs Temp 36.7 C 09/13/19 11:45 Pulse 87 09/12/19 08:00 Resp 10 L 09/13/19 11:45 BP 125/82 09/13/19 11:45 Pulse Ox 94 L 09/13/19 11:45 Med Orders - Current: Current Medications Discontinued Medications Calcium Carbonate/Glycine (Tums) 1,000 mg PO ONETIME ONE Stop: 09/12/19 19:51 Last Admin: 09/12/19 20:08 Dose: 1,000 mg Calcium Gluconate (Calcium Gluconate) 1 gm IV ONETIME ONE Stop: 09/12/19 01:30 Last Admin: 09/12/19 03:08 Dose: Not Given Calcium Gluconate (Calcium Gluconate) 2 gm IV NOW STA Stop: 09/12/19 14:50 Last Admin: 09/12/19 17:30 Dose: Not Given Enoxaparin Sodium (Lovenox) 40 mg SUBCUT Q24H [facility] Last Admin: 09/12/19 18:12 Dose: 40 mg Famotidine (Pepcid) 20 mg IVPUSH ONETIME ONE Stop: 09/12/19 05:20 Last Admin: 09/12/19 05:48 Dose: 20 mg Sodium Chloride (Normal Saline) 1,000 mls @ 999 mls/hr IV BOLUS ONE Stop: 09/11/19 16:57 Last Admin: 09/11/19 16:18 Dose: 999 mls/hr Sodium Chloride (Normal Saline) 1,000 mls @ 999 mls/hr IV .Bolus ONE Stop: 09/11/19 18:53 Last Admin: 09/11/19 17:56 Dose: 999 mls/hr Sodium Chloride (Normal Saline) 1,000 mls @ 999 mls/hr IV BOLUS PRAAM Stop: 09/12/19 19:46 Last Admin: 09/11/19 22:24 Dose: 999 mls/hr Insulin Human Regular 100 unit (/ Sodium Chloride) 100 mls @ 4.03 mls/hr IV TITRATE [facility]; Protocol Pantoprazole Sodium 40 mg/ (Sodium Chloride) 10 mls @ 300 mls/hr IV Q24H [facility] Last Admin: 09/11/19 20:18 Dose: 300 mls/hr Thiamine HCl 100 mg/ Sodium (Chloride) 101 mls @ 202 mls/hr IV ONETIME ONE Stop: 09/11/19 19:29 Last Admin: 09/11/19 21:12 Dose: 202 mls/hr Insulin Human Regular 100 unit (/ Sodium Chloride) 100 mls @ 2 mls/hr IV TITRATE [facility]; Protocol Last Titration: 09/12/19 17:17 Dose: 0 units/hr, 0 mls/hr Dextrose/Sodium Chloride (Dextrose 5%-Normal Saline) 1,000 mls @ 200 mls/hr IV ASDIRECTED [facility] Last Admin: 09/12/19 11:38 Dose: 200 mls/hr Potassium Phosphate 30 mmole/ (Sodium Chloride) 510 mls @ 115.909 mls/hr IV NOW ONE Stop: 09/12/19 01:35 Last Admin: 09/11/19 23:37 Dose: 100 mls/hr Calcium Gluconate 1 gm/ Sodium (Chloride) 60 mls @ 60 mls/hr IV ONETIME ONE Stop: 09/12/19 02:44 Last Admin: 09/12/19 03:04 Dose: 60 mls/hr Magnesium Sulfate 2 gm/ Premix 50 mls @ 50 mls/hr IV ONETIME ONE Stop: 09/12/19 02:37 Last Admin: 09/12/19 01:59 Dose: 50 mls/hr Calcium Gluconate 1 gm/ Sodium (Chloride) 60 mls @ 60 mls/hr IV ONETIME ONE Stop: 09/12/19 06:14 Last Admin: 09/12/19 05:38 Dose: 60 mls/hr Potassium Chloride 40 meq/ (Premix) 100 mls @ 25 mls/hr IV ONETIME ONE Stop: 09/12/19 13:19 Last Admin: 09/12/19 09:42 Dose: 25 mls/hr Pantoprazole Sodium 40 mg/ (Sodium Chloride) 10 mls @ 300 mls/hr IV DAILY@0700 [facility] Last Admin: 09/13/19 06:46 Dose: 300 mls/hr Sodium Chloride (Normal Saline) 1,000 mls @ 999 mls/hr IV ASDIRECTED [facility] Stop: 09/12/19 11:01 Last Admin: 09/12/19 10:38 Dose: 999 mls/hr Sodium Phosphate 20 mmole/ (Sodium Chloride) 256.6667 mls @ 64.167 mls/hr IV ONETIME ONE Stop: 09/12/19 15:44 Last Admin: 09/12/19 12:21 Dose: 64.167 mls/hr Sodium Chloride (Normal Saline) 1,000 mls @ 999 mls/hr IV ASDIRECTED [facility] Stop: 09/12/19 12:46 Last Admin: 09/12/19 12:34 Dose: 999 mls/hr Magnesium Sulfate 2 gm/ Premix 50 mls @ 25 mls/hr IV ONETIME ONE Stop: 09/12/19 16:59 Last Admin: 09/12/19 15:16 Dose: 25 mls/hr Calcium Gluconate 2 gm/ Sodium (Chloride) 120 mls @ 60 mls/hr IV ONETIME PARAM Last Admin: 09/12/19 15:44 Dose: 60 mls/hr Sodium Chloride (Normal Saline) 1,000 mls @ 999 mls/hr IV BOLUS ONE Stop: 09/12/19 19:18 Last Admin: 09/12/19 18:35 Dose: 999 mls/hr Insulin Aspart (Novolog) 0 unit SUBCUT TIDAC [facility]; Protocol Insulin Aspart (Novolog) 0 unit SUBCUT TIDAC [facility]; Protocol Last Admin: 09/12/19 18:11 Dose: 6 unit Insulin Aspart (Novolog) 0 unit SUBCUT Q4H [facility]; Protocol Insulin Aspart (Novolog) 0 unit SUBCUT QID [facility]; Protocol Insulin Aspart (Novolog) 0 unit SUBCUT Q6H [facility]; Protocol Last Admin: 09/13/19 08:12 Dose: Not Given Insulin Detemir (Levemir) 10 unit SUBCUT ONETIME ONE Stop: 09/12/19 14:48 Last Admin: 09/12/19 16:03 Dose: 10 unit Insulin Detemir (Levemir) 5 unit SUBCUT BEDTIME [facility] Last Admin: 09/12/19 20:02 Dose: 5 unit Insulin Human Regular (Novolin R) 15 unit SUBCUT ASDIRECTED [facility]; Protocol Last Admin: 09/11/19 18:18 Dose: 15 units Ketorolac Tromethamine (Toradol) 15 mg IVPUSH Q6H PRN PRN Reason: Pain Last Admin: 09/12/19 13:21 Dose: 15 mg Ondansetron HCl (Zofran) 4 mg IVPUSH ONETIME ONE Stop: 09/11/19 15:58 Last Admin: 09/11/19 17:32 Dose: Not Given Ondansetron HCl (Zofran) 4 mg IVPUSH Q4H PRN PRN Reason: Nausea/Vomiting Last Admin: 09/12/19 05:44 Dose: 4 mg Potassium Chloride (Klor-Con M20) 40 meq PO ONETIME ONE Stop: 09/12/19 01:39 Last Admin: 09/12/19 01:53 Dose: 40 meq Potassium Chloride (Potassium Chloride) 40 meq PO ONETIME ONE Stop: 09/12/19 13:59 Last Admin: 09/12/19 14:34 Dose: 40 meq Potassium Chloride (Klor-Con M20) 40 meq PO ONETIME ONE Stop: 09/12/19 22:04 Last Admin: 09/12/19 22:15 Dose: 40 meq Potassium Chloride (Klor-Con M20) 40 meq PO ONETIME ONE Stop: 09/12/19 23:56 Last Admin: 09/12/19 23:38 Dose: 40 meq Potassium Chloride (Klor-Con M20) Confirm Administered Dose 40 meq .ROUTE .STK- MED ONE Stop: 09/12/19 22:14 Last Admin: 09/12/19 22:27 Dose: Not Given Sodium Bicarbonate (Sodium Bicarbonate 8.4%) 50 meq IVPUSH ONETIME ONE Stop: 09/11/19 18:05 Last Admin: 09/11/19 18:38 Dose: 50 meq Sodium Bicarbonate (Sodium Bicarbonate 8.4%) 50 meq IVPUSH ONETIME ONE Stop: 09/11/19 18:06 Last Admin: 09/11/19 18:39 Dose: 50 meq Sodium Phosphate (Neutra-Phos) 250 mg PO ONETIME ONE Stop: 09/12/19 01:42 Last Admin: 09/12/19 01:53 Dose: 250 mg Sodium Phosphate (Neutra-Phos) 250 mg PO ONETIME ONE Stop: 09/12/19 14:58 Last Admin: 09/12/19 15:31 Dose: 250 mg Sodium Phosphate (Neutra-Phos) 250 mg PO QID PARAM Last Admin: 09/13/19 12:11 Dose: 250 mg
[2019-09-13 12:54] VITALS: BP 125/82
== END 2019-09-13 12:45 | disposition home or self-care (01) | DRG 420 ==
LOC: MW.ED 15:42 → MW.ICU 18:46
PROVIDERS: ADMIT Student in an Organized Health Care Education/Training Program; ATTEND Student in an Organized Health Care Education/Training Program
DX: E11.10 Type 2 diabetes mellitus with ketoacidosis without coma (principal); N17.9 Acute kidney failure, unspecified; E87.1 Hypo-osmolality and hyponatremia; I95.9 Hypotension, unspecified; E83.39 Other disorders of phosphorus metabolism; E43 Unspecified severe protein-calorie malnutrition; Z68.1 Body mass index [BMI] 19.9 or less, adult; Z79.899 Other long term (current) drug therapy; Z79.4 Long term (current) use of insulin
CPT/HCPCS: 36415; 36600; 71045; 71045-26; 80048; 80053; 81001; 82009; 82040; 82330; 82550; 82803; 82962; 83605; 83690; 83735; 84100; 84443; 84478; 84484; 85025; 85610; 87086; 87088; 87186; 87804; 93005; 96361; 96372; 96374; 99284; 99285-25; A9270-GY; C9113; J0610; J1650; J1815-GY; J1885; J2405; J3411; J3475; J3480; J3490; J7030; J7040; J7042; J7050

== ENCOUNTER 2020-10-03 11:42 | Emergency (ER) | payer BC ==
[2020-10-03] MEDS ORDERED: Sodium Chloride 0.9% 10 ML Syringe FLUSH PRN (11:44)
[2020-10-03] MEDS ORDERED: Sodium Chloride 0.9% 2.5 ML Syringe FLUSH PRN (11:44)
--- NOTE | 2020-10-03 11:48 | EDM.PDOC ---
ED HPI GENERAL MEDICAL PROBLEM - General Stated Complaint: EMS ARRIVAL Time Seen by Provider: 10/03/20 11:46 - History of Present Illness INITIAL COMMENTS - FREE TEXT/NARRATIVE: History of present illness: [] According to paramedics this patient's who is a good historian witnessed a 4-minute seizure. Afterwards she was somnolent but by the time paramedics got there she was able to get up and walk. Its been a long time since he had a seizure but she is on Tegretol. He is a diabetic and her blood sugar was adequate on exam in the field. Her oxygen saturation was low when they arrived but responded nicely to nasal cannula. 11:52 AM addendum per the who was leading a service at the [facility] where she had the seizure she has had no recent injury. She has gained some weight since she started her dose of Keppra 1000 mg twice a day. She does not take Tegretol. Last seizure was a long time ago. But usually when she has a seizure she wakes up more quickly. Review of systems: As per history of present illness and below otherwise all systems reviewed and negative. Past medical history: As per history of present illness and as reviewed below otherwise noncontributory. Surgical history: As per history of present illness and as reviewed below otherwise noncontributory. Social history: No reported history of drug or alcohol abuse. Family history: As per history of present illness and as reviewed below otherwise non contributory. Physical exam: Constitutional - well developed, well-nourished and in no acute distress HEENT - normocephalic, no evidence of trauma - external nose and mouth normal - no mass in neck and no JVD - mucosae moist EYES - full EOM, PERRL, no icterus - no evidence of inflammation, injection, or drainage Respiratory - no respiratory distress, equal bilateral expansion, lungs clear to auscultation and no abnormal lung sounds Cardiovascular - Regular Rhythm with S1 and S2 appreciated and no murmur, gallop or rub. GI - abdomen soft without distension or organomegaly - normal bowel sounds - no guard or rebound Musculoskeletal no gross deformity of long bones or joints - no tenderness, swelling or edema Neurologic -on arrival she is arousable to deep pain and voice but does not talk. She had a period where she was walking after the seizure and then she became irrational and combative suggesting a postictal confusion or possible recurrent seizure activity. She was given 2 mg of IM midazolam. She has been calm since. Psychiatric -unable to assess on initial exam Hematologic - No petechiae or purpura - mucosa appropriate color and sclera not pale - normal nail bed color and refill Integument - no rash or evidence of trauma - normal turgor Diagnostics: [] Therapeutics: [] Impression: [] Plan: [] Definitive disposition and diagnosis as appropriate pending reevaluation and review of above. - Related Data Allergies Allergy/AdvReac Type Severity Reaction Status Date / Time No Known Allergies Allergy Verified 10/03/20 11:49 Home Meds: Home Meds levETIRAcetam [Keppra] 500 mg PO DAILY 12/18/16 [History] Blood Sugar Diagnostic [Blood Glucose Test Strip] 1 each MC TID #1 pack 09/13/19 [Rx] Blood-Glucose Meter [Blood Glucose Meter] 1 each MC TID #1 each 09/13/19 [Rx] Container,Empty [Sharps Container] 1 each MC DAILY #1 each 09/13/19 [Rx] Insulin Aspart [NovoLOG] 3 unit SUBCUT TIDAC #1 pen 09/13/19 [Rx] Insulin Detemir [Levemir] 10 unit SUBCUT BEDTIME #1 pen 09/13/19 [Rx] Lancets [Fingerstix] 1 each MC TID #1 pack 09/13/19 [Rx] Pen Needle, Diabetic [Pen [place]] 1 each MC TID #1 pack 09/13/19 [Rx] Ciprofloxacin [Cipro XR 500 MG Tablet] 500 mg PO DAILY #4 tab.er 09/14/19 [Rx] Past Medical History - Past Health History Medical/Surgical History: Denies Medical/Surgical History HEENT History: Reports: None Cardiovascular History: Reports: None Respiratory History: Reports: None Gastrointestinal History: Reports: Other (See Below) Other Gastrointestinal History: small amt/streaks of bright red blood in stools over past couple weeks [employer] History: Reports: Other [employer] History: perimenopausal Neurological History: Reports: Seizure Other Neuro History: seizures from high bg's per pt, reports "memory problems since mid 40's" Endocrine/Metabolic History: Reports: Diabetes, Type II Oncologic (Cancer) History: Reports: None - Past Surgical History Other HEENT Surgeries/Procedures: ear surgery 20 years ago. nasal surgery 5 years ago Social & Family History - Family History Family Medical History: No Pertinent Family History - Caffeine Use Caffeine Use: Reports: Coffee Caffeine Use Comment: 3 cups a day ED ROS GENERAL - Review of Systems Review Of Systems: Unable To Obtain Reason Not Obtained: Patient is nonverbal on arrival ED EXAM, GENERAL - Physical Exam Exam: See Below Free Text/Narrative:: My physical exam is in the HPI #1 Interpretation EKG Interpretation Comments: EKG done 10/03/2020 at 11:52 AM and interpreted at 1156. Sinus rhythm heart rate 95. NH 161. QT 444. QRS 87. Large P wave but otherwise QRS ST and T are within normal limits. Impression no acute injury. This was compared 19 and the P waves are somewhat more prominent now suggesting the possibility of development of right atrial enlargement. Course - Vital Signs Text/Narrative:: 12:13 PM patient rouses easily. She moves eyes to either side with full extraocular motion. She moves both hands equally in response to commands. 1357 hrs. the patient woke up. Her sugar is 191 and improving. I believe her metabolic disturbances because of the seizure activity and not the other way around. She has continuous glucose monitor patch on her left anterior abdominal wall. They follow her sugar closely. I will add Keppra 500 mg daily to her regimen and have her follow-up with neurology and her primary. Last Recorded V/S: Last Vital Signs Temp 35.8 C L 10/03/20 11:49 Pulse 97 10/03/20 11:49 Resp 18 10/03/20 11:49 BP 121/67 10/03/20 11:49 Pulse Ox 98 10/03/20 11:49 - Orders/Labs/Meds Orders: Active Orders 24 hr Category Date Time Status EKG Documentation Completion [RC] AM Care 10/03/20 11:44 Active DRUG SCREEN, URINE [URCHEM] Stat Lab 10/03/20 11:45 Ordered UA W/MADELINE RFLX IF INDICATED [URIN] Stat Lab 10/03/20 11:45 Ordered Sodium Chloride 0.9% [Saline Flush] Med 10/03/20 11:44 Active 10 ml FLUSH ASDIRECTED PRN Sodium Chloride 0.9% [Saline Flush] Med 10/03/20 11:44 Active 2.5 ml FLUSH ASDIRECTED PRN levETIRAcetam [Keppra] 500 mg Med 10/03/20 12:00 Active Dextrose 5% in Water 100 ml IV Q12H Saline Lock Insert [OM.PC] Stat Oth 10/03/20 11:44 Ordered Medication Orders Levetiracetam 500 mg/ Dextrose (/Water) 105 mls @ 420 mls/hr IV Q12H PARAM Last Admin: 10/03/20 12:19 Dose: 420 mls/hr Documented by: RENÉE Sodium Chloride (Saline Flush) 10 ml FLUSH ASDIRECTED PRN PRN Reason: Keep Vein Open Last Admin: 10/03/20 12:19 Dose: 10 ml Documented by: RENÉE Sodium Chloride (Saline Flush) 2.5 ml FLUSH ASDIRECTED PRN PRN Reason: Keep Vein Open Last Admin: 10/03/20 12:20 Dose: 2.5 ml Documented by: RENÉE Labs: Laboratory Tests 10/03/20 10/03/20 10/03/20 Range/Units 11:46 11:46 12:30 WBC 10.33 (4.0-11.0) K/uL RBC 4.80 (4.30-5.90) M/uL Hgb 14.0 (12.0-16.0) g/dL Hct 42.6 (36.0-46.0) % MCV 88.8 (80.0-98.0) fL MCH 29.2 (27.0-32.0) pg MCHC 32.9 (31.0-37.0) g/dL RDW Std Deviation 40.1 (28.0-62.0) fl RDW Coeff of Mary 13 (11.0-15.0) % Plt Count 246 (150-400) K/uL MPV 9.40 (7.40-12.00) fL Neut % (Auto) 49.2 (48.0-80.0) % Lymph % (Auto) 43.3 H (16.0-40.0) % Treasure % (Auto) 6.3 (0.0-15.0) % Eos % (Auto) 1.0 (0.0-7.0) % Baso % (Auto) 0.2 (0.0-1.5) % Neut # (Auto) 5.1 (1.4-5.7) K/uL Lymph # (Auto) 4.5 H (0.6-2.4) K/uL Treasure # (Auto) 0.7 (0.0-0.8) K/uL Eos # (Auto) 0.1 (0.0-0.7) K/uL Baso # (Auto) 0.0 (0.0-0.1) K/uL Nucleated RBC % 0.0 /100WBC Nucleated RBCs # 0 K/uL Sodium 138 (136-145) mmol/L Potassium 2.9 L (3.5-5.1) mmol/L Chloride 100 (98-107) mmol/L Carbon Dioxide 18.7 L (21.0-32.0) mmol/L BUN 15 (7.0-18.0) mg/dL Creatinine 1.1 H (0.6-1.0) mg/dL Est Cr Clr Drug Dosing 41.51 mL/min Estimated GFR (MDRD) > 60.0 ml/min Glucose 218 H (74-106) mg/dL POC Glucose 191 H (60-110) mg/dL Calcium 9.4 (8.5-10.1) mg/dL Total Bilirubin 0.4 (0.2-1.0) mg/dL AST 20 (15-37) IU/L ALT 26 (14-63) IU/L Alkaline Phosphatase 88 (46-116) U/L Troponin I < 0.050 (0.000-0.056) ng/mL Total Protein 7.8 (6.4-8.2) g/dL Albumin 4.2 (3.4-5.0) g/dL Globulin 3.6 (2.6-4.0) g/dL Albumin/Globulin Ratio 1.2 (0.9-1.6) Ethyl Alcohol <3 mg/dL Meds: Medications Generic Name Dose Route Start Last Admin Trade Name Freq PRN Reason Stop Dose Admin Levetiracetam 500 mg/ Dextrose 105 mls @ 420 mls/hr 10/03/20 12:00 10/03/20 12:19 /Water IV 420 mls/hr Q12H PARAM Administration Sodium Chloride 10 ml 10/03/20 11:44 10/03/20 12:19 Saline Flush FLUSH 10 ml ASDIRECTED PRN Administration Keep Vein Open Sodium Chloride 2.5 ml 10/03/20 11:44 10/03/20 12:20 Saline Flush FLUSH 2.5 ml ASDIRECTED PRN Administration Keep Vein Open Discontinued Medications Generic Name Dose Route Start Last Admin Trade Name Freq PRN Reason Stop Dose Admin Potassium Chloride 40 meq 10/03/20 12:54 10/03/20 13:51 Potassium Chloride PO 10/03/20 12:55 40 meq ONETIME ONE Administration Departure - Departure Time of Disposition: 13:59 Disposition: Home, Self-Care 01 Condition: Good Clinical Impression: Seizure, Diabetes mellitus, Hypokalemia - Discharge Information Instructions: Epilepsy, [id number], Hypokalemia, Living With Diabetes Referrals: Garrett Mckoy MD [Primary Care Provider] - Additional Instructions: Add an extra 500 mg of Keppra every bedtime until you talk to her neurologist or primary doctor. [facility] - Primary Care [address] [place] [address] [place] [address] [facility] - Neurology Professional [facility] [address] [place] [address], [address] [place] [address] The following information is given to patients seen in the emergency department who are being discharged to home. This information is to outline your options for follow-up care. We provide all patients seen in our emergency department with a follow-up referral. The need for follow-up, as well as the timing and circumstances, are variable depending upon the specifics of your emergency department visit. If you don't have a primary care physician on staff, we will provide you with a referral. We always advise you to contact your personal physician following an emergency department visit to inform them of the circumstance of the visit and for follow-up with them and/or the need for any referrals to a consulting specialist. The emergency department will also refer you to a specialist when appropriate. This referral assures that you have the opportunity for follow-up care with a specialist. All of these measure are taken in an effort to provide you with optimal care, which includes your follow-up. Under all circumstances we always encourage you to contact your private physician who remains a resource for coordinating your care. When calling for follow-up care, please make the office aware that this follow-up is from your recent emergency room visit. If for any reason you are refused follow-up, please contact the [facility] Emergency Department at and asked to speak to the emergency department charge nurse. Sepsis Event Note (ED) - Focused Exam Vital Signs: Vital Signs Temp Pulse Resp BP Pulse Ox 10/03/20 11:49 35.8 C L 97 18 121/67 98 - My Orders Last 24 Hours: My Active Orders 10/03/20 11:44 EKG Documentation Completion [RC] AM Sodium Chloride 0.9% [Saline Flush] 10 ml FLUSH ASDIRECTED PRN Sodium Chloride 0.9% [Saline Flush] 2.5 ml FLUSH ASDIRECTED PRN Saline Lock Insert [OM.PC] Stat 10/03/20 11:45 DRUG SCREEN, URINE [URCHEM] Stat UA W/MADELINE RFLX IF INDICATED [URIN] Stat 10/03/20 12:00 levETIRAcetam [Keppra] 500 mg Dextrose 5% in Water 100 ml IV Q12H - Assessment/Plan Last 24 Hours: My Active Orders 10/03/20 11:44 EKG Documentation Completion [RC] AM Sodium Chloride 0.9% [Saline Flush] 10 ml FLUSH ASDIRECTED PRN Sodium Chloride 0.9% [Saline Flush] 2.5 ml FLUSH ASDIRECTED PRN Saline Lock Insert [OM.PC] Stat 10/03/20 11:45 DRUG SCREEN, URINE [URCHEM] Stat UA W/MADELINE RFLX IF INDICATED [URIN] Stat 10/03/20 12:00 levETIRAcetam [Keppra] 500 mg Dextrose 5% in Water 100 ml IV Q12H
[2020-10-03 12:22] LABS: BLOOD UREA NITROGEN,BUN 15 mg/dL (7.0-18.0); CARBON DIOXIDE,CO2 18.7 mmol/L (21.0-32.0); CHLORIDE,CL 100 mmol/L (98-107); GLUCOSE RANDOM 218 mg/dL (74-106); POTASSIUM,K 2.9 mmol/L (3.5-5.1); SODIUM,NA 138 mmol/L (136-145)
[2020-10-03] MEDS ORDERED: Potassium Chloride 10% 20 MEQ/15 ML Soln 30 ML UD Cup PO ONE (12:54)
[2020-10-03] MEDS ORDERED: Acetaminophen 325 MG Tab PO ONE (15:04)
[2020-10-03] MEDS ORDERED: 50% Dextrose in Water 50 ML Syringe IV PRN (15:17)
[2020-10-03] MEDS ORDERED: Glucagon,Human Recombinant 1 MG Vial IM PRN (15:17)
[2020-10-03] MEDS ORDERED: Insulin Regular, Human 100 Units/ML 10 ML Vial SUBCUT ONE (15:17)
[2020-10-03 16:24] LABS: BLOOD UREA NITROGEN,BUN 14 mg/dL (7.0-18.0); CARBON DIOXIDE,CO2 25.8 mmol/L (21.0-32.0); CHLORIDE,CL 99 mmol/L (98-107); GLUCOSE RANDOM 254 mg/dL (74-106); POTASSIUM,K 4.7 mmol/L (3.5-5.1)
[2020-10-03 16:32] LABS: SODIUM,NA 136 mmol/L (136-145)
[2020-10-03 17:57] VITALS: BP 122/63; PULSE 89
== END 2020-10-03 17:10 | disposition home or self-care (01) ==
LOC: MW.ED 11:42 → UNDOADMOB 17:10 → MW.ED 17:10 → MW.MS 17:10
DX: R56.9 Unspecified convulsions (principal); E11.9 Type 2 diabetes mellitus without complications; E87.6 Hypokalemia; Z79.4 Long term (current) use of insulin; Z20.828 Contact with and (suspected) exposure to other viral communicable diseases
CPT/HCPCS: 80048; 80053; 80305; 80307; 81003; 82550; 82962; 84484; 85025; 87635; 93005; 96365; 99285; A9270; J1953; J7060; U0002

== ENCOUNTER 2022-01-16 06:25 | Day surgery (SDC) | payer OTHER ==
[~2022-01-16 06:25] MED LIST: Lactated Ringers 1,000 ML IV SCH
[2022-01-16] MEDS ORDERED: Ondansetron 4 MG/2 ML SDV ONE (07:03)
[2022-01-16] MEDS ORDERED: Midazolam 1 MG/ML 2 ML SDV ONE (07:03)
[2022-01-16] MEDS ORDERED: Propofol 200 MG/20 ML SDV ONE ×2 (07:03→07:17)
[2022-01-16] MEDS ORDERED: fentaNYL 100 MCG/2 ML SDV ONE (07:17)
[2022-01-16] MEDS ORDERED: Lidocaine 1% 5 ML VIAL ONE (07:17)
[2022-01-16] MEDS ORDERED: Lactated Ringers 1,000 ML IV SCH (08:45)
[2022-01-16 08:53] VITALS: BP 105/65; PULSE 71
== END 2022-01-16 09:08 | disposition home or self-care (01) ==
LOC: MW.SDS 06:25
PROVIDERS: ATTEND Surgery
DX: Z12.11 Encounter for screening for malignant neoplasm of colon (principal); D12.4 Benign neoplasm of descending colon; E11.9 Type 2 diabetes mellitus without complications; Z79.899 Other long term (current) drug therapy
CPT/HCPCS: 45380; 82947; J2704; J3010; J7120; 00812; J2250; J2405

== ENCOUNTER 2022-09-05 02:46 | Inpatient (IN) | payer OTHER ==
[2022-09-05] MEDS ORDERED: Sodium Chloride 0.9% 2.5 ML Syringe FLUSH PRN (03:04)
[2022-09-05] MEDS ORDERED: Sodium Chloride 0.9% 10 ML Syringe FLUSH PRN (03:04)
[2022-09-05] MEDS ORDERED: diphenhydrAMINE 50 MG/ML SDV IVPUSH ONE (03:06)
[2022-09-05] MEDS ORDERED: Sodium Chloride 0.9% 1,000 ML IV ONE ×2 (03:06→04:05)
[2022-09-05] MEDS ORDERED: Metoclopramide 10 MG/2 ML SDV IVPUSH ONE (03:06)
[2022-09-05] MEDS ORDERED: diphenhydrAMINE 50 MG/ML SDV ONE (03:18)
[2022-09-05] MEDS ORDERED: Metoclopramide 10 MG/2 ML SDV ONE (03:19)
[2022-09-05 03:46] LABS: CARBON DIOXIDE,CO2 15.5 mmol/L (21.0-32.0); POTASSIUM,K 4.4 mmol/L (3.5-5.1)
[2022-09-05 04:21] LABS: CORONAVIRUS COVID-19 NAA NEGATIVE (NEGATIVE); INFLUENZA A NAA NEGATIVE (NEGATIVE); INFLUENZA B NAA NEGATIVE (NEGATIVE)
[2022-09-05] MEDS ORDERED: Dextrose 5%-0.45% NaCl 1,000 ML IV STA (05:04)
[2022-09-05] MEDS ORDERED: Insulin Regular in 0.9 % NACL 100 ML ONE (05:55)
[2022-09-05] MEDS ORDERED: Insulin Regular in 0.9 % NACL 100 ML IV SCH (06:04)
[2022-09-05] MEDS ORDERED: Ondansetron 4 MG/2 ML SDV IVPUSH PRN (07:56)
[2022-09-05] MEDS: Aspirin 81 MG Tab.EC PO SCH (08:55)
[2022-09-05] MEDS: levETIRAcetam 500 MG Tab PO SCH ×2 (08:55→21:00)
[2022-09-05 09:18] LABS: CARBON DIOXIDE,CO2 7.7 mmol/L (21.0-32.0); POTASSIUM,K 4.7 mmol/L (3.5-5.1)
[2022-09-05] MEDS ORDERED: Sodium Bicarbonate 150 MEQ in Dextrose 5% in Water 850 ML IV ONE ×2 (09:48)
[2022-09-05 10:14] LABS: HEMOGLOBIN A1C 8.2 %
[2022-09-05] MEDS ORDERED: Pantoprazole 40 MG in Sodium Chloride 0.9% 10 ML IVPUSH SCH (10:15)
[2022-09-05] MEDS: Enoxaparin 40 MG/0.4 ML Syringe SUBCUT SCH (11:51)
[2022-09-05 12:54] LABS: CARBON DIOXIDE,CO2 16.3 mmol/L (21.0-32.0); POTASSIUM,K 4.3 mmol/L (3.5-5.1)
[2022-09-05] MEDS ORDERED: Sodium Bicarbonate 150 MEQ in Dextrose 5% in Water 100 ML IV ONE ×2 (13:37)
[2022-09-05 15:50] LABS: CARBON DIOXIDE,CO2 28.5 mmol/L (21.0-32.0); POTASSIUM,K 4.2 mmol/L (3.5-5.1)
[2022-09-05] MEDS ORDERED: Acetaminophen 325 MG Tab PO PRN (16:03)
[2022-09-05] MEDS: Insulin Aspart 100 Units/ML 3 ML Pen SUBCUT SCH ×2 (16:47→21:03)
[2022-09-05 19:47] LABS: CARBON DIOXIDE,CO2 24.1 mmol/L (21.0-32.0); POTASSIUM,K 3.4 mmol/L (3.5-5.1)
[2022-09-05] MEDS ORDERED: Potassium Chloride 20 MEQ Tab.ER PO ONE (20:54)
[2022-09-05] MEDS ORDERED: Rosuvastatin 10 MG Tab PO SCH (21:00)
[2022-09-05] MEDS: Insulin Glargine,Hum.Rec.Anlog 100 UNIT/ML 3 ML Pen SUBCUT SCH (21:04)
[2022-09-06 00:07] LABS: CARBON DIOXIDE,CO2 24.5 mmol/L (21.0-32.0); POTASSIUM,K 3.5 mmol/L (3.5-5.1)
[2022-09-06 03:48] LABS: CARBON DIOXIDE,CO2 25.5 mmol/L (21.0-32.0); POTASSIUM,K 3.8 mmol/L (3.5-5.1)
[2022-09-06 07:34] LABS: CARBON DIOXIDE,CO2 25.3 mmol/L (21.0-32.0); POTASSIUM,K 3.8 mmol/L (3.5-5.1)
[2022-09-06] MEDS: Insulin Aspart 100 Units/ML 3 ML Pen SUBCUT SCH ×2 (08:18→11:32)
[2022-09-06] MEDS ORDERED: Pantoprazole 40 MG Tab.CR PO SCH (09:00)
[2022-09-06] MEDS: Aspirin 81 MG Tab.EC PO SCH (10:09)
[2022-09-06] MEDS: levETIRAcetam 500 MG Tab PO SCH (10:09)
[2022-09-06] MEDS: Enoxaparin 40 MG/0.4 ML Syringe SUBCUT SCH (10:09)
[2022-09-06] MEDS: Insulin Glargine,Hum.Rec.Anlog 100 UNIT/ML 3 ML Pen SUBCUT SCH (10:10)
[2022-09-06 14:43] VITALS: BP 98/60; PULSE 90
== END 2022-09-06 15:05 | disposition home or self-care (01) | DRG 639 ==
LOC: MW.ED 02:46 → MW.ICU 05:05 → MW.MS 21:48
PROVIDERS: ADMIT Internal Medicine; ATTEND Internal Medicine
DX: E11.10 Type 2 diabetes mellitus with ketoacidosis without coma (principal); Z79.4 Long term (current) use of insulin; Z79.82 Long term (current) use of aspirin; Z79.899 Other long term (current) drug therapy; Z20.822 Contact with and (suspected) exposure to COVID-19
CPT/HCPCS: 0240U; 36415; 70450; 70450-26; 71045; 71045-26; 80048; 80053; 81001; 82009; 82803; 82947; 83036; 83605; 83690; 83735; 84484; 85025; 93005; A9270-GY; C9113; J1200; J1650; J1815; J1815-GY; J2765; J3490; J7030; J7042; J7060